=== PATIENT | male | born 1935 | race African-American/Black ===

== ENCOUNTER 2016-12-08 08:06 | Inpatient (IN) | payer OTHER ==
--- NOTE | 2016-12-08 08:54 | Diag Imaging Result Document ---
PROCEDURE NAME: CHEST-1 VIEW - 12/08/2016 CHEST, SINGLE VIEW: INDICATION: Hip fracture. FINDINGS: There is cardiomegaly. The pulmonary vasculature is not congested. There is evidence of previous granulomatous infection. No infiltrates or effusions are identified. IMPRESSION: No acute abnormalities. Cardiomegaly.
[2016-12-08] MEDS ORDERED: ZOFRAN IV ONE (09:01)
[2016-12-08] MEDS ORDERED: MORPHINE IV ONE (09:01)
--- NOTE | 2016-12-08 09:05 | Diag Imaging Result Document ---
PROCEDURE NAME: XRAY PELVIS W/HIP 2-3VW RT - 12/08/2016 X-RAY PELVIS WITH HIP 2-3 VIEWS, RIGHT: FINDINGS: There is a transverse fracture through the right femoral neck with varus angulation. There is no dislocation. There are surgical clips projecting over the inguinal regions and common iliac stents. IMPRESSION: Right femoral neck fracture.
[2016-12-08] MEDS ORDERED: MORPHINE ONE (09:08)
--- NOTE | 2016-12-08 09:10 | PROVIDER DOCUMENTATION ---
HPI-General Adult - General Chief Complaint: Hip Injury Stated Complaint: hip injury Time Seen by Provider: 12/08/16 09:00 Allergies/Adverse Reactions: Patient Allergies Allergy/AdvReac Type Severity Reaction Status Date / Time No Known Allergies Allergy Verified 12/08/16 08:16 Home Medications: Home Medication List Medication Instructions Recorded Confirmed Last Taken Type Clopidogrel [Plavix] 1 dose PO DAILY 12/08/16 12/08/16 Unknown History Diltiazem HCl [Diltiazem ER] 1 dose PO DIRECTED 12/08/16 12/08/16 12/08/16 09 :09 History Lisinopril/Hydrochlorothiazide 1 dose PO DIRECTED 12/08/16 12/08/16 12/08/16 09:10 History [Lisinopril-Hctz 20-12.5 mg Tab] Metformin E.r. [Glucophage Xr] 1 dose BID 12/08/16 12/08/16 12/08/16 09:08 History Omeprazole 1 dose PO DIRECTED 12/08/16 12/08/16 12/08/16 09:10 History Potassium Chloride E.r. [Micro-K] 1 dose PO DIRECTED 12/08/16 12/08/16 09:10 History SIMVAstatin [Zocor] 1 dose PO DIRECTED 12/08/16 12/08/16 Unknown History Tamsulosin [Flomax] 1 dose PO DAILY 12/08/16 12/08/16 12/08/16 09:08 History - History of Present Illness -Gen Adult Nature of Presenting Problems: 81 YOBLKM PRESENTS TO ED WITH C/O RT HIP PAIN. PT STATES HE FELL IN FLOOR YESTERDAY EVENING AROUND 1400, PT STATES HE WAS IN THE FLOOR ALL NIGHT, AND WAS FOUND BY FAMILY AND EMS WAS CALLED. RT LEG APPEARS TO BE SHORTER THAN THE LEFT, AND ROTATED OUTWARD. Location of Pain/Injury: reports: lower extremity (RT HIP) Pain Radiation: reports: no radiation Quality of Pain: reports: aching Severity: reports: moderate Onset/Duration: reports: 24 hours ago Timing: reports: still present Context/Activities at Onset: reports: light activity Modifying Factors: improves with: nothing Similar Symptoms Previously?: No Recently seen or treated by another doctor?: No Review of Systems - Adult - REVIEW OF SYSTEMS - ADULT Constitutional: denies: chills, fever Eyes: reports: no symptoms reported Ears, Nose, Mouth & Throat: reports: no symptoms reported Cardiovascular: denies: chest pain, palpitations, syncope Respiratory: denies: cough, shortness of breath, wheezing Gastrointestinal: denies: abdominal pain, diarrhea, nausea, vomiting Genitourinary: reports: no symptoms reported Musculoskeletal: reports: joint pain (RT HIP). denies: back pain, neck pain Integumentary: reports: no symptoms reported Neurological: denies: dizziness/vertigo, headache/migraines, syncope Psychiatric: reports: no symptoms reported Endocrine: reports: no symptoms reported Hematologic/Lymphatic: reports: no symptoms reported Allergic/Immunologic: reports: no symptoms reported All Other Systems: Reviewed and Negative Past History - Adult - PAST MEDICAL HISTORY-ADULT Review of Records: reports: Nursing Assessment Review, Medications Reviewed Cardiovascular: reports: HTN Neurological: reports: CVA - IMMUNIZATION STATUS Childhood Immunizations: See Nurse Assessment Flu Vaccine: See Nurse Assessment - SOCIAL HISTORY Smoking: quit greater than 1 year, cigarettes Substance Use: denies Alcohol Use Frequency: never Living Situation: alone Physical Exam-General - CONSTITUTIONAL General Appearance: alert, moderate distress - EYES Eyes: PERRL/EOMI, pink conjunctivae - HEAD, EARS, NOSE, MOUTH & THROAT HENMT: normocephalic/atraumatic, moist mucous membranes - NECK Neck: non-tender, full range of motion, supple - RESPIRATORY Respiratory: chest non-tender, lungs clear, normal breath sounds - CARDIOVASCULAR Cardiovascular: normal peripheral pulses, regular rate, rhythm - GASTROINTESTINAL (ABDOMEN) Abdominal Exam: normal bowel sounds, non tender, soft - LYMPHATIC Lymphatic: no adenopathy - MUSCULOSKELETAL Back Exam: normal inspection, no CVA tenderness, no vertebral tenderness Extremity: tenderness (RT HIP), other - SKIN Integumentary: normal color, normal turgor, warm/dry - NEUROLOGIC Neurologic: grossly normal - PSYCHIATRIC Psych/Mental Status: oriented x 3 Progress - EKG 1 Time of EKG reading by physician:: 09:10 EKG Read and Signed by:: Jamie Toth EKG Interpretation (*Must complete 3 of following elements*): Abnormal Rate: 75 Rhythm: SINUS RHYTHM W/ SINUS ARRHYTHMIA [place]: normal QRS: normal ME Interval: normal Comments: ST & T WAVE ABNORMALITY. - XRAY 1 XRAY: Right XRAY Study: Hip XRAY Interpretation: FEMUR NECK FX - CONSULTS/PCP/HOSPITALIST Notification #1 *Consult/PCP/Hospitalist*: DR JANG Time Discussed: 09:18 Reason/Comments: DR TOTH SPOKE WITH DR JANG. DR JANG WILL SEE PT AT MAIN. Consult Disposition: Admit #2 Consult: DR BOLIVAR Time Discussed: 09:22 Reason/Comments: DR TOTH SPOKE WITH DR BOLIVAR. DR BOLIVAR WILL HOLD PT FOR A ROOM. Consult Disposition: Admit Departure - Departure Time of Disposition Order: 09:13 DIAGNOSIS: Femur neck fracture Qualifiers: Encounter type: initial encounter Fracture type: closed Laterality: right Qualified Code(s): S72.001A - Fracture of unspecified part of neck of right femur, initial encounter for closed fracture Disposition: ADMITTED INPATIENT 09 Certified Medical Emergency: Emergent Condition: Stable Attestation - Scribe Verification/Attestation Scribe:: Fazal Howard Acting as Scribe for:: Jamie Toth Scribe documention review:: This chart was documented by a scribe and accurately reflects the service the provider performed and the decisions made by the provider.
[2016-12-08 09:12] LABS: BASO% 0.1 % (0.0-0.8); EOS# 0.01 X1000 (0.0-0.7); EOS% 0.1 % (0.0-10.0); HEMATOCRIT 37.1 % (42.0-52.0); HEMOGLOBIN 12.5 g/dL (14.0-18.0); IMM GRAN# 0.02 X1000 (0.0-0.04); IMM GRAN% 0.2 % (0.0-0.5); LYMPH# 0.72 X1000 (1.2-3.4); LYMPH% 5.8 % (20.5-51.1); MANUAL DIFF NEEDED? YES; MCH 29.1 PG (27-31); MCHC 33.7 g/dL (33-37); MCV 86.5 FL (81-99); MONO# 0.88 X1000 (0.11-0.59); MONO% 7.1 % (1.7-9.3); MPV 10.2 FL (7.4-10.4); NEUT% 86.7 % (42.2-75.2); PLT 181 X1000 (130-400); RBC 4.29 XMIL (4.7-6.1)
[2016-12-08 09:21] LABS: INR 1.16 (0.86-1.15); PROTIME 15.1 Seconds (12.1-15.5); PTT PL 30.7 Seconds (22.6-43.9)
--- NOTE | 2016-12-08 09:24 | EKG Report ---
Test Performed on : 12/08/2016 09:09:36 AM Test Reason : hip fx Blood Pressure : / mmHG Vent. Rate : 075 BPM Atrial Rate : 075 BPM P-R Int : 136 ms QRS Dur : 090 ms QT Int : 406 ms P-R-T Axes : 070 071 -38 degrees QTc Int : 453 ms Sinus rhythm. with marked sinus arrhythmia. ST & T wave abnormality, consider inferolateral ischemia Abnormal ECG When compared with ECG of 26-NOV-2007 18:54, Left posterior fascicular block is no longer present ST now depressed in Inferior leads Non-specific change in ST segment in Anterior leads T wave inversion now evident in Inferior leads T wave inversion now evident in Anterior leads T wave inversion less evident in Lateral leads Unconfirmed Result
[2016-12-08 09:27] LABS: ALBUMIN 3.8 g/dL (3.5-5.0); CALCIUM 9.3 mg/dL (8.8-10.2); POTASSIUM 3.4 mmol/L (3.5-5.1); TOTAL BILIRUBIN 1.1 mg/dL (0.20-1.00); TOTAL PROTEIN 7.1 g/dL (6.3-8.3)
[2016-12-08 09:36] LABS: BANDS 1 % (0-1); LYMPHS 7 % (21-51); MONO 8 % (1-9)
[2016-12-08] MEDS ORDERED: APRESOLINE IV PRN ×2 (11:43→13:39)
[2016-12-08] MEDS ORDERED: NS 500 ML IV ONE ×2 (11:47→13:50)
[2016-12-08] MEDS ORDERED: ZOFRAN IV PRN (11:50)
[2016-12-08] MEDS ORDERED: TYLENOL PO PRN (11:50)
[2016-12-08 12:10] LABS: HEMOGLOBIN A1C 6.3 % (4.8-6.0)
[2016-12-08] MEDS ORDERED: DILTIAZEM HCL PO SCH (12:45)
[2016-12-08] MEDS: HUMALOG SUBQ SCH ×2 (16:00→20:58)
--- NOTE | 2016-12-08 16:07 | CONSULTATION ---
DATE OF CONSULTATION: 12/08/2016 REASON FOR CONSULT: Right hip fracture. HISTORY OF PRESENT ILLNESS: Mr. Wood is a 81-year-old gentleman who fell yesterday while at home in the kitchen. After his fall he is complaining of right hip pain. The family did not find him until the following day. On arrival to the emergency department, x-rays were obtained of Mr. Wood's hips revealing a hip fracture, as well as some abnormal creatine kinase, possibility of some rhabdomyolysis occurring. We were consulted to evaluate the patient's right hip. PAST MEDICAL HISTORY: 1. The patient is blind in his left eye. 2. Diabetes mellitus. 3. Kidney stents. 4. Aortic aneurysm. 5. Acid reflux. 6. Hyperlipidemia. 7. Stroke. 8. Hypertension. 9. Benign prostatic hypertrophy. PAST SURGICAL HISTORY: 1. Abscess on his midback. 2. Stent placement related to renal stenosis. 3. Aortic aneurysm repair. ALLERGIES: No known allergies. HOME MEDICATIONS: 1. Flomax 0.4 mg p.o. daily. 2. Potassium 10 mEq one p.o. as directed. 3. Omeprazole 20 mg one dose p.o. as directed. 4. Lisinopril/hydrochlorothiazide 20/12.5 mg tablet one p.o. as directed. 5. Diltiazem ER 300 mg one p.o. as directed. 6. Plavix 75 mg one p.o. daily. 7. Glucophage 500 mg one dose b.i.d. 8. Zocor 40 mg one p.o. as directed. FAMILY HISTORY: Noncontributory. SOCIAL HISTORY: Mr. Wood lives at home. Reports smoking cigarettes. Denies using alcohol. REVIEW OF SYSTEMS: Ten point review of systems were performed and the patient answered negative in, except for what was listed in the history of present illness. PHYSICAL EXAMINATION: General: The patient is lying in bed. He is awake. Slow to answer questions, but appropriate. Family surrounding the room. Musculoskeletal Examination: Reveals pain with palpation about the right hip. Mr. Wood has pain with log rolling the right leg. He has 2+ pulse in the right foot distal to the injury, as well as brisk capillary refill. Neurological Examination: He is neurologically intact. There is no neurological deficit there. ASSESSMENT: Right femoral neck fracture. PLAN: Right bipolar hemiarthroplasty. The risks, benefits, and alternatives of the surgery were discussed with the patient, including the risk of anesthesia, , bleeding, damage to blood vessels, nerves, tendons, ligaments, infection and other imponderables, and the patient agrees to proceed with the surgery at this time. Dictated by SEBASTIAN Luis for Luke Bai MD
--- NOTE | 2016-12-08 16:21 | HISTORY AND PHYSICAL ---
CHIEF COMPLAINT: Fall and right leg pain. HISTORY OF PRESENT ILLNESS: This is a very pleasant, 81-year-old gentleman with a prior history of hypertension, BPH, diabetes mellitus and prior CVA. He presents to the emergency room for evaluation of right hip pain. He states that he fell at around 2 o'clock the afternoon before coming to the emergency room. He was unable to get up off the floor secondary to pain. He was found by his family around 7 o'clock this morning, about 19 or 20 hours after the fall. He denied any dizziness, chest pain, syncope. He states he just lost his footing and fell. He was noted to have a shortened and rotated right lower extremity. Hip and pelvis x-ray revealed a right femoral neck fracture which is transverse with varus angulation. There is no dislocation. He does have surgical clips over the inguinal region and common iliac stents. He is being admitted for further evaluation and treatment. PAST MEDICAL HISTORY: Hypertension, peripheral vascular disease with iliac stents noted, BPH on Flomax, diabetes mellitus, prior CVA, hyperlipidemia. PAST SURGICAL HISTORY: He denies. ALLERGIES: No known drug allergies. SOCIAL HISTORY: Denies alcohol, tobacco, or illicit drug use. He does live alone, but he has family close that are active in his care. DISCHARGE MEDICATIONS: 1. Flomax 0.4 daily. 2. Zocor daily. 3. Plavix daily. 4. Diltiazem ER daily. 5. Lisinopril hydrochlorothiazide 20/12.5 daily. These will need to be further verified with the last doses being on the , we think. REVIEW OF SYSTEMS: A 14 point review of systems is discussed with patient with pertinent positives being right lower extremity pain, recent fall. He denied chest pain, palpitations, syncope, dizziness, nausea, vomiting, diarrhea, constipation, black or bloody vomitus, black or bloody stools and hematuria, dysuria, frequency, urgency, any shortness of breath, PND, orthopnea, fever, chills. PHYSICAL EXAMINATION: GENERAL: This is a 81-year-old gentleman, who is sitting up in the bed, in no distress. VITAL SIGNS: Blood pressure is 181/97 with a heart rate of 82, respirations are 18, temperature is 98.9 degrees oral with room air saturations of 97%. HEENT: Head is normocephalic, atraumatic. Pupils equal, round, react to light. EOMs are intact. Sclerae are anicteric. Mucous membranes are dry. NECK: Supple with trachea midline. CARDIOVASCULAR: Regular rate and rhythm. S1 and S2 are appreciated. PULMONARY: Breath sounds are clear. No increased work of breathing noted. GASTROINTESTINAL: Abdomen is soft, nontender, nondistended with bowel sounds in all 4 quadrants. EXTREMITIES: No clubbing, cyanosis, or edema. Right lower extremity is rotated and shortened. Calves are nontender. Pulses are palpable. SKIN: Warm and dry with no rashes or lesions noted. NEUROLOGIC: He is alert and oriented x3. DIAGNOSTICS: WBC is 12.4, with a hemoglobin of 12.5, hematocrit 37.1, and platelets of 181,000. INR is 1.16. Sodium is 137, potassium 3.4, BUN 21, creatinine 1.2 with a glucose of 160. HbA1c is 6.3 with a total bilirubin of 1.1, AST of 47, ALT of 16 and a total CPK of 3120. Hip and pelvis x-ray of the right reveal a right femoral neck fracture that is not dislocated, and his chest x-ray reveals no acute abnormalities. ASSESSMENT AND PLAN: 1. Right femoral neck fracture status post fall. 2. Rhabdomyolysis with decreasing CPK. 3. Hypertension. 4. Benign prostatic hypertrophy. 5. Diabetes mellitus with an A1c of. 6.3. 6. Elevated leukocytosis. This could be reactive, although he does have a history of BPH. He states symptoms are controlled on Flomax. When Vaughn catheter is placed, we will obtain a urinalysis and a urine culture. He denied any symptoms of any illnesses. We will continue to trend labs. CPK was 3120. We have started IV hydration. A repeat was 2972. We will continue with the hydration. Vaughn has been placed now. We will continue with q.6 hours CPKs with the next one being at 6 o'clock tonight. Creatinine is 1.2. 7. Dr. Bai in orthopedics has been consulted. He will see the patient at [facility]. Prior to that we will have the patient placed in Tate traction at 5 pounds. Type and screen has been obtained. Dictated by SEBASTIAN Oliveira for Saturnino Brantley MD LUX
[2016-12-08 16:44] LABS: URINE SOURCE CATH
[2016-12-08 16:52] LABS: BILIRUBIN URINE NEGATIVE (NEGATIVE); BLOOD URINE LARGE (NEGATIVE); CLARITY CLEAR (CLEAR); COLOR YELLOW; GLUCOSE URINE 100 mg/dL (NEGATIVE); LEUKOCYTES URINE NEGATIVE (NEGATIVE); NITRITE URINE NEGATIVE (NEGATIVE); PROTEIN URINE 100 mg/dL (NEGATIVE); SP GRAVITY URINE >= 1.030; UROBILINOGEN URINE 0.2 EU/dL (0.2-1.0)
[2016-12-08 17:03] LABS: URINE EPITHELIAL CELLS <10 /HPF (<10); URINE WBC <10 /HPF (<10)
[2016-12-08] MEDS: MORPHINE IV PRN ×2 (17:06→20:49)
[2016-12-08] MEDS: CARDIZEM CD PO SCH (17:07)
[2016-12-08] MEDS: PROTONIX IV SCH (17:18)
[2016-12-08] MEDS: NS 1,000 ML IV SCH ×2 (17:24→20:49)
[2016-12-08 18:38] LABS: CALCIUM 8.7 mg/dL (8.8-10.2); POTASSIUM 3.7 mmol/L (3.5-5.1)
[2016-12-09] MEDS: MORPHINE IV PRN ×4 (03:10→19:21)
[2016-12-09] MEDS: NS 1,000 ML IV SCH ×2 (03:13→14:01)
[2016-12-09] MEDS: HUMALOG SUBQ SCH ×4 (07:00→21:06)
[2016-12-09 07:07] LABS: HEMATOCRIT 35.3 % (42.0-52.0); HEMOGLOBIN 12.1 g/dL (14.0-18.0); MCHC 34.3 g/dL (33-37); MCV 87.4 FL (81-99); MPV 11.1 FL (7.4-10.4); RBC 4.04 XMIL (4.7-6.1)
[2016-12-09 07:50] LABS: CALCIUM 8.4 mg/dL (8.8-10.2); POTASSIUM 3.6 mmol/L (3.5-5.1); TOTAL BILIRUBIN 0.69 mg/dL (0.20-1.00); TOTAL PROTEIN 6.5 g/dL (6.3-8.3)
[2016-12-09] MEDS: CARDIZEM CD PO SCH (09:40)
--- NOTE | 2016-12-09 11:23 | PROGRESS NOTE ---
DATE: 12/09/2016 SUBJECTIVE: The patient is a pleasant 81-year-old male who is 2 days status post a fall sustaining a right femoral neck fracture. He was approximately 1 day before he presented to the emergency room and x-rays revealed a right displaced femoral neck fracture. He was subsequently transferred to [facility] and orthopedic evaluation was requested. The patient was also noted to have rhabdomyolysis and is improving with IV fluids. OBJECTIVE: Patient is currently resting comfortably. Tate's traction is in place. His calf is soft. He is grossly neurovascularly intact. LABORATORY DATA: His hemoglobin is 12.1, hematocrit is 35.3. His creatine kinase is 2375, which is improving. IMPRESSION: Right displaced femoral neck fracture. PLAN: At this point, we will anticipate proceeding with right bipolar hemiarthroplasty tomorrow if the patient is medically cleared. Patient would like one more day for improvement of his rhabdomyolysis, would also like to wait secondary to his taking Plavix. All questions were answered.
--- NOTE | 2016-12-09 12:24 | PROGRESS NOTE ---
DATE: 12/09/2016 SUBJECTIVE: This patient is resting comfortably on the bed. He is complaining of right hip pain. He denies nausea, vomiting, diarrhea, constipation. No chest pain. No shortness of breath. OBJECTIVE: Vital Signs: Temperature 97.6 degrees, pulse 66, respiratory rate 16, blood pressure 134/66, O2 saturation 94% on room air. HEENT: Head normocephalic. No trauma. PERRLA. Neck: Supple. No JVD. No masses. Central trachea. Cardiovascular: RRR. No murmurs. Chest: Clear to auscultation. No wheezing. No rales. Abdomen: Soft, nontender, nondistended. No hepatosplenomegaly. Extremities: No clubbing, no cyanosis. No edema. Right lower extremity is on skeletal traction. It is a little bit short compared with the left lower extremity likely secondary to a femur fracture. Pulses are palpable. Neurological: The patient is alert and oriented x3. No focal neurological deficits. LABORATORY: WBC 10, hemoglobin 12.1, hematocrit 35.3, platelets 169,000. Sodium 139, potassium 3.6, chloride 103, bicarbonate 21, BUN 26, creatinine 1.4. Glucose 124. Hemoglobin A1c 6.3. Calcium 8.4. CK 1993. Albumin 3. ASSESSMENT AND PLAN: 1. Right femoral neck fracture. Orthopedic Surgery Department evaluated this patient and they will perform a right bipolar hemiarthroplasty. We will continue to monitor. We will continue with pain medication. 2. Rhabdomyolysis with decreasing CPK, this is getting better. The creatinine is a little bit elevated. It is 1.4. We do not have a baseline creatinine, no records. We will continue to monitor and with IV hydration. 3. Hypertension. This is stable. Continue with the same management. 4. BPH. Continue with the same management. 5. Type 2 diabetes with a hemoglobin A1c of 6.3. It looks it is controlled. We will continue with the same management. This patient is on a sliding scale insulin and pattern of blood sugar. We also will also continue with IV fluids. 6. The leukocytosis is getting better. Decreased from 12.4 to 10.2. No signs of infection at this moment. 7. DVT prophylaxis. He is not on any anticoagulation for now because he is going for surgery. 8. GI prophylaxis. I will continue with pantoprazole 40 IV daily.
[2016-12-09] MEDS: PROTONIX IV SCH (12:30)
[2016-12-09] MEDS: SODIUM CHLORIDE 0.9% INJ SCH (14:01)
[2016-12-10] MEDS: NS 1,000 ML IV SCH (04:56)
[2016-12-10] MEDS: MORPHINE IV PRN ×4 (04:56→23:57)
[2016-12-10 06:21] LABS: MANUAL DIFF NEEDED? NO
[2016-12-10 06:22] LABS: BASO% 0.2 % (0.0-0.8); HEMATOCRIT 36.1 % (42.0-52.0); HEMOGLOBIN 12.3 g/dL (14.0-18.0); IMM GRAN# 0.03 X1000 (0.0-0.04); IMM GRAN% 0.3 % (0.0-0.5); LYMPH# 0.75 X1000 (1.2-3.4); LYMPH% 7.5 % (20.5-51.1); MCH 29.8 PG (27-31); MCHC 34.1 g/dL (33-37); MCV 87.4 FL (81-99); MONO# 0.82 X1000 (0.11-0.59); MONO% 8.2 % (1.7-9.3); MPV 11.1 FL (7.4-10.4); NEUT% 82.8 % (42.2-75.2); PLT 154 X1000 (130-400); RBC 4.13 XMIL (4.7-6.1)
[2016-12-10 06:32] LABS: AGAP 15; BUN 26 mg/dL (8-22); CALCIUM 8.5 mg/dL (8.8-10.2); CHLORIDE 103 mmol/L (98-107); COSMO 284; POTASSIUM 3.5 mmol/L (3.5-5.1); SODIUM 138 mmol/L (136-145); TCO2 20 mmol/L (25-35)
[2016-12-10] MEDS: HUMALOG SUBQ SCH ×4 (07:26→20:46)
[2016-12-10] MEDS: CARDIZEM CD PO SCH (08:55)
[2016-12-10] MEDS ORDERED: KEFZOL 2 GM/D5W 50 ML ONE (11:58)
[2016-12-10] MEDS ORDERED: NEOSPORIN G.U. IRRIGANT ONE (12:22)
[2016-12-10] MEDS ORDERED: ALBUMIN 25% ONE (13:28)
[2016-12-10] MEDS ORDERED: DIPRIVAN 1% ONE (13:41)
[2016-12-10] MEDS ORDERED: LR 2,000 ML ONE (14:46)
[2016-12-10] MEDS ORDERED: EPHEDRINE ONE (14:46)
[2016-12-10] MEDS ORDERED: OFIRMEV 1000 MG/ISOTONIC SOLN 100 ML ONE (14:46)
[2016-12-10] MEDS ORDERED: ANESTHESIA PB SET 88 IN 5742 ONE (14:46)
[2016-12-10] MEDS ORDERED: XYLOCAINE-MPF 2% ONE (14:46)
[2016-12-10] MEDS ORDERED: NS 1,000 ML ONE (14:57)
[2016-12-10] MEDS ORDERED: ZOFRAN IV PRN (15:15)
[2016-12-10] MEDS ORDERED: MILK OF MAGNESIA PO PRN (15:15)
[2016-12-10] MEDS ORDERED: HALDOL IV PRN (15:15)
--- NOTE | 2016-12-10 15:43 | PROGRESS NOTE ---
DATE: 12/10/2016 SUBJECTIVE: This patient is resting comfortably on the bed. He is getting surgery today. He is not complaining of pain. No shortness of breath. No chest pain as well. OBJECTIVE: Vital Signs: Temperature 98 degrees, pulse 78, respiratory rate 20, blood pressure 177/76, O2 saturation 96% on nasal cannula. HEENT: Head normocephalic. No trauma. PERRLA. Neck: Supple. No JVD. No masses. Central trachea. Chest: Clear to auscultation. No wheezing. No rales. Cardiovascular: RRR. Abdomen: Soft, nontender, nondistended. Obese. Extremities: No clubbing, no cyanosis. No edema. Right lower extremities painful at the level of the hip, left lower extremity without any problem. Pulses are palpable. Neurological: The patient is sleepy but arousable likely secondary to pain medication. LABORATORY: WBC 9.9, hemoglobin 12.3, hematocrit 36.1, platelet 154,000. Sodium 138, potassium 3.5, chloride 103, bicarbonate 20, BUN 26, creatinine 1.3, glucose 166, calcium 8.5. ASSESSMENT AND PLAN: 1. Right femoral neck fracture, Orthopedic Surgery Department evaluated this patient and they are performing a right bipolar hemiarthroplasty. We will continue to monitor. We will continue with pain medication. 2. Rhabdomyolysis. This is getting better. We will continue to monitor the creatinine. Compared with yesterday decreased a little bit from 1.4 to 1.3. We will continue to monitor and IV hydration. 3. Hypertension. The blood pressure is a little bit elevated likely secondary to pain. We will continue this monitoring after surgery. 4. Benign prostatic hypertrophy. Continue with the same management. 5. Type 2 diabetes with hemoglobin A1c of 6.3. It looks like it is controlled. I will continue with the same management. This patient is on a sliding scale insulin and pattern of blood sugar. Also we will continue with IV fluids. 6. Leukocytosis. Today the leukocytes are 9.9, no source of infection. No fever. No chills. This condition has resolved. 7. DVT prophylaxis. He is not on anticoagulation at this moment because he is getting surgery. 8. GI prophylaxis. Continue with pantoprazole IV daily.
[2016-12-10] MEDS: OXY IR PO PRN ×2 (16:00→23:49)
[2016-12-10] MEDS: PROTONIX IV SCH (16:30)
[2016-12-10] MEDS: TYLENOL PO SCH ×2 (16:54→23:49)
--- NOTE | 2016-12-10 17:20 | OPERATIVE NOTE ---
PROCEDURE DATE: 12/08/2016 PREOPERATIVE DIAGNOSIS: Right displaced femoral neck fracture. POSTOPERATIVE DIAGNOSIS: Right displaced femoral neck fracture. PROCEDURE: Hemiarthroplasty right hip with a DePuy Corail size 13 press-fit stem. SURGEON: Luke Bai MD EXECUTIVE ASSISTANT: Axel Orellana. SECOND SENIOR ELECTRONICS DESIGN ENGINEER: Bryan Mills. ANESTHESIA: General. IV FLUIDS: 1000 mL lactated Ringer's. ESTIMATED BLOOD LOSS: 50 mL. COMPLICATIONS: None. INDICATION: The patient is a 81-year-old male who is 3 days status post fall sustaining a right displaced femoral neck fracture. He presented the [facility] emergency room on Tuesday and x-rays revealed displaced femoral neck fracture. He was admitted in the hospital and placed 5 pounds of Tate's traction. Patient did have an underlying rhabdomyolysis and also was on chronic Plavix. After obtaining preoperative medical clearance recommendation to proceed right bipolar hemiarthroplasty on the right hip was offered. Risks, benefits surgery explained including anesthesia, , bleeding, infection, failure relieve pain, postop stiffness, never injury, blood clots and other imponderables. All questions answered. Patient, family wished to proceed with surgery. DETAILS OF OPERATION: The patient was taken to the operating room and placed supine on the operating table. Once adequate anesthesia was obtained the patient was placed left lateral decubitus position on a cyr bag with axillary roll. The right hip subsequently prepped, draped in sterile fashion. Standard lateral incision made along the hip and a posterior approach of the hip was performed. The luteus levon was incised longitudinally in line with the surgical incision. A Charnley retractor was then placed. The piriformis tendon was then identified and stay sutures placed. Piriformis tendon along with short external rotators was then elevated off its insertion site. A T-shaped capsulotomy was then performed. Number 1 Vicryl used, placed at the 2 edges of the cut surface of the posterior capsule. Corkscrew was then placed into the femoral head. The head was then removed after debridement of the acetabula was then conducted. A box cutting guide was then placed on the proximal humerus followed by a starting reamer. Sequential broaching was then performed up to size 13 stem. This was countersunk and a calcar plane was then conducted. Trial components then place and a 28 +1.5 femoral head with a 28 x 53 bipolar head had excellent stability and range of motion. The trial components were removed. Copious irrigation performed with antibiotic pulsatile lavage. A size 13 Corail stem was then impacted in position and had good fit. The 28 + 1.5 femoral head with a 28 x 53 bipolar head was then impacted on the stem. The hip was reduced, carried through range of motion, had good range of motion, good stability. The wound was copiously irrigated with antibiotic pulsatile lavage. Number 1 Vicryl was used to repair the posterior capsule followed by #1 Vicryl repair the piriformis tendon. Wound was copiously irrigated once again. The Charnley retractor was removed. Number 1 Vicryl was then used to repair the gluteus levon and fascia masha in running fashion. Wound was copiously once again this followed by 2-0 Vicryl and skin rani. Adaptic, sterile 4 x 4's, ABD pad and tape applied right hip followed by and patient tolerated procedure well, no complications, transferred to recovery room in stable condition.
--- NOTE | 2016-12-10 19:06 | Diag Imaging Result Document ---
PROCEDURE NAME: HIP 1 VIEW RIGHT - 12/10/2016 AP RIGHT HIP 1 VIEW: FINDINGS: There are postsurgical changes of recent right total hip prosthesis placement. Alignment appears satisfactory. There are no complicating features identified. IMPRESSION: Satisfactory postoperative image.
[2016-12-10] MEDS: COLACE PO SCH (20:44)
[2016-12-10] MEDS: KEFZOL 2 GM/D5W 50 ML IV SCH (20:44)
[2016-12-10] MEDS: PERIDEX MT SCH (20:44)
[2016-12-11] MEDS: KEFZOL 2 GM/D5W 50 ML IV SCH (05:45)
[2016-12-11] MEDS: HUMALOG SUBQ SCH ×4 (06:05→21:13)
[2016-12-11 06:18] LABS: MANUAL DIFF NEEDED? NO
[2016-12-11 06:41] LABS: BASO% 0.1 % (0.0-0.8); EOS# 0.06 X1000 (0.0-0.7); EOS% 0.7 % (0.0-10.0); HEMATOCRIT 27.6 % (42.0-52.0); HEMOGLOBIN 9.2 g/dL (14.0-18.0); IMM GRAN# 0.03 X1000 (0.0-0.04); IMM GRAN% 0.3 % (0.0-0.5); LYMPH# 1.24 X1000 (1.2-3.4); LYMPH% 13.7 % (20.5-51.1); MCH 29.7 PG (27-31); MCHC 33.3 g/dL (33-37); MONO# 1.06 X1000 (0.11-0.59); MONO% 11.8 % (1.7-9.3); MPV 11.7 FL (7.4-10.4); NEUT% 73.4 % (42.2-75.2); PLT 145 X1000 (130-400)
[2016-12-11] MEDS: MORPHINE IV PRN (07:50)
--- NOTE | 2016-12-11 09:50 | PROGRESS NOTE ---
DATE: 12/11/2016 SUBJECTIVE: Mr. Wood is postop day 1 from his right hip hemiarthroplasty yesterday performed by Dr. Bai. A little bit of a rough night overall. Pain is getting better though. OBJECTIVE: Extremities: Right lower extremity exam: Dressing is clean, dry, and intact. He has good dorsiflexion and plantar flexion of the foot. He has good sensation to light touch to the foot, and he has his hip abduction pillow in place. ASSESSMENT: Status post right hip hemiarthroplasty. PLAN: I am okay with Mr. Wood getting out of bed for all meals. Physical therapy will start working with him today to get him up and moving. Will keep him on his anticoagulation.
[2016-12-11] MEDS: CARDIZEM CD PO SCH (10:32)
[2016-12-11] MEDS: OXY IR PO PRN (10:32)
[2016-12-11] MEDS: FERROUS SULFATE PO SCH (10:32)
[2016-12-11] MEDS: NS 1,000 ML IV SCH ×2 (11:30→23:00)
[2016-12-11] MEDS: TYLENOL PO SCH ×2 (12:01→16:03)
[2016-12-11] MEDS: HEPARIN SUBQ SCH ×2 (12:02→21:12)
[2016-12-11] MEDS: PERIDEX MT SCH ×2 (12:03→21:12)
--- NOTE | 2016-12-11 12:06 | PROGRESS NOTE ---
DATE: 12/11/2016 SUBJECTIVE: This patient is resting comfortably on the bed. He is a little bit somnolent, probably secondary to the morphine. He is complaining of mild pain at the level of the right hip at this moment. No shortness of breath. No chest pain. No belly pain. Family members at the bedside. OBJECTIVE: Vital Signs: Temperature 98.9, pulse 70, respiratory rate 14, blood pressure 113/56, oxygen saturation 96 on nasal cannula 2 L. HEENT: Head normocephalic. No trauma. PERRLA. Neck: Supple. No JVD. No masses. Central trachea. Chest: Clear to auscultation. No wheezing. No rales. Cardiovascular: RRR. No murmurs. Abdomen: Soft, nontender, nondistended. Obese. Extremities: No clubbing, no cyanosis. No edema. Right lower extremity painful at the level of the right hip. Surgical wound without any sign of bleed or infection. The dressing is clean. Pulses are palpable bilaterally. Neurological: The patient is sleepy, but arousable and this patient is oriented. He is following commands. LABORATORY: WBC 9, hemoglobin 9.2, hematocrit 27.6, platelets 147. Sodium 141, potassium 4, chloride 106, bicarbonate 22, BUN 33, creatinine 2, glucose 179. Calcium 8. ASSESSMENT AND PLAN: 1. Right femoral neck fracture. Orthopedic surgery department is on board, he is status post right bipolar hemiarthroplasty. We will continue to monitor. He is on p.o. and IV pain medication. Also physical therapy has been consulted. I will put this patient today on anticoagulation. 2. Acute kidney injury. When this patient came to the emergency department, the CK was elevated and the creatinine was around 1.2-1.4. Today is 2. I will place this patient on IV fluids at a rate of 100 and I will reassess the kidney function again. 3. Hypertension. The blood pressure is controlled. Today is 113/56, we will continue to monitor. 4. Anemia. Previous to the surgery, the hemoglobin was 12.3, today it is 9.2, likely secondary to acute blood loss. Will continue to monitor this. His vital signs are stable, we will transfuse if needed. 5. Type 2 diabetes with hemoglobin A1c of 6.3, This looks like this is controlled. Will continue with the same management. He is on sliding scale insulin and pattern of blood sugar. Also will continue with IV fluids. 6. Leukocytosis resolved. 7. Deep vein thrombosis prophylaxis. I put this patient today on anticoagulation. Because of his kidney injury, I will put this patient on heparin subcutaneously. 8. Gastrointestinal prophylaxis. Continue with pantoprazole. This patient has been placed on clear liquid diet as well.
[2016-12-11] MEDS: PROTONIX IV SCH (12:11)
--- NOTE | 2016-12-11 13:26 | Diag Imaging Result Document ---
PROCEDURE NAME: US ABDOMEN-COMPLETE - 12/11/2016 ABDOMINAL ULTRASOUND: FINDINGS: The aorta and inferior vena cava are within normal limits. The gallbladder is distended, but not tender. No apparent stones are present. There is no evidence of biliary dilatation. The common bile duct measures 3 mm. The aorta and inferior vena cava are partially obscured as is the pancreas. The kidneys are without evidence of hydronephrosis or mass. There is antegrade flow in the portal vein. The liver is otherwise unremarkable as seen. The spleen is obscured. IMPRESSION: 1. Suboptimal study due to bowel gas and body habitus. 2. Distended, but otherwise normal-appearing gallbladder.
[2016-12-11] MEDS: COLACE PO SCH (21:12)
[2016-12-12] MEDS: TYLENOL PO SCH ×3 (00:14→16:49)
[2016-12-12 06:03] LABS: MANUAL DIFF NEEDED? NO
[2016-12-12 06:25] LABS: BASO% 0.2 % (0.0-0.8); EOS# 0.13 X1000 (0.0-0.7); EOS% 1.4 % (0.0-10.0); HEMOGLOBIN 8.3 g/dL (14.0-18.0); IMM GRAN# 0.02 X1000 (0.0-0.04); IMM GRAN% 0.2 % (0.0-0.5); LYMPH# 1.44 X1000 (1.2-3.4); LYMPH% 15.3 % (20.5-51.1); MCH 29.3 PG (27-31); MCHC 33.2 g/dL (33-37); MCV 88.3 FL (81-99); MONO# 1.06 X1000 (0.11-0.59); MONO% 11.3 % (1.7-9.3); MPV 11.3 FL (7.4-10.4); NEUT% 71.6 % (42.2-75.2); PLT 128 X1000 (130-400); RBC 2.83 XMIL (4.7-6.1)
[2016-12-12 06:34] LABS: POTASSIUM 3.6 mmol/L (3.5-5.1)
[2016-12-12] MEDS: NS 1,000 ML IV SCH (06:47)
[2016-12-12] MEDS: FERROUS SULFATE PO SCH (09:45)
[2016-12-12] MEDS: PERIDEX MT SCH ×2 (09:45→21:31)
[2016-12-12] MEDS: CARDIZEM CD PO SCH (09:45)
[2016-12-12] MEDS: HEPARIN SUBQ SCH ×2 (09:45→21:30)
[2016-12-12] MEDS: HUMALOG SUBQ SCH ×4 (11:47→21:44)
[2016-12-12] MEDS: OXY IR PO PRN (11:58)
[2016-12-12] MEDS: SODIUM CHLORIDE 0.9% INJ SCH (11:59)
[2016-12-12] MEDS: PROTONIX IV SCH (11:59)
--- NOTE | 2016-12-12 12:48 | PROGRESS NOTE ---
DATE: 12/12/2016 SUBJECTIVE: This patient is resting comfortably on the bed. He states that he wants to go home. He is more attentive and answering all my questions. He is alert and oriented x2. He is not oriented in time. He is not complaining of any pain at this moment. No shortness of breath. No chest pain. His creatinine has been increasing for the last couple of days, even though he has been getting fluids. I will consult nephrology department to evaluate this patient. OBJECTIVE: Vital Signs: Temperature 97.5 degrees, pulse 80, respiratory rate 14, blood pressure 117/58, oxygen saturation 99 on room air. HEENT: Head normocephalic. No trauma. PERRLA. Neck: Supple. No JVD. No masses. Central trachea. Chest: Clear to auscultation. No wheezing. No rales. Cardiovascular: RRR. No murmurs. Abdomen: Soft, nontender, nondistended. Obese. Extremities: No clubbing, cyanosis, or edema. Right lower extremity painful at the level of the right hip to palpation. Surgical wound without any sign of bleed or infection. The dressing is clean. Pulses are palpable bilaterally. Neurological Examination: The patient is alert. He is oriented x2. He is not oriented in time. He is answering all my questions. He is following commands. Laboratory: WBC 9.3, hemoglobin 8.3, hematocrit 25, platelets 128,000. Sodium 138, potassium 3.6, chloride 104, bicarbonate 21, BUN 47, creatinine 2.7, glucose 147, calcium 8. ASSESSMENT AND PLAN: 1. Right femoral neck fracture. Orthopedic surgery department is on board. He is status post right bipolar hemiarthroplasty. We will continue to monitor. Physical therapy is on board as well. We will continue with pain medication and anticoagulation. 2. Acute kidney injury. The creatinine I think has been getting worse. Yesterday it was 2 and today is 2.7. I will place a consult for nephrology department to evaluate this patient. This patient has been on intravenous fluids since yesterday. 3. Hypertension. The blood pressure is controlled. Continue to monitor. 4. Anemia. Previous to surgery, the hemoglobin was 12.3 and then dropped to 9.2, today is 8.3. We will keep an eye on that. We will follow the hemoglobin and hematocrit. We will transfuse if needed. 5. Type 2 diabetes with a hemoglobin A1c of 6.3. This looks like it is controlled. We will continue with the same management. We will continue with the sliding scale insulin and pattern of blood sugar. 6. Leukocytosis, resolved. 7. Deep venous thrombosis prophylaxis. This patient is on heparin subcutaneously. 8. Gastrointestinal prophylaxis, pantoprazole. Continue with pantoprazole.
[2016-12-12] MEDS ORDERED: HALDOL IV ONE (13:56)
[2016-12-12] MEDS ORDERED: HALDOL IM ONE (15:45)
[2016-12-12 19:03] LABS: URINE MICRO REVIEW NEEDED? NO; URINE SOURCE CATH
[2016-12-12 19:08] LABS: BILIRUBIN URINE NEGATIVE (NEGATIVE); BLOOD URINE MODERATE (NEGATIVE); COLOR YELLOW; GLUCOSE URINE NEGATIVE (NEGATIVE); LEUKOCYTES URINE NEGATIVE (NEGATIVE); NITRITE URINE NEGATIVE (NEGATIVE); PH URINE 5.5; PROTEIN URINE 50 mg/dL (NEGATIVE); SP GRAVITY URINE 1.025; TURBIDITY URINE CLEAR (CLEAR); UROBILINOGEN URINE NORMAL (NORMAL)
[2016-12-12 19:09] LABS: UR EPITHELIAL CELLS <10 /HPF (<10); URINE BACTERIA NEGATIVE /HPF; URINE RBC <10 /HPF (<10); URINE WBC <10 /HPF (<10)
[2016-12-12 19:46] LABS: UR CREAT RANDOM 245.7 mg/dL (14-26); UR PROT RANDOM 71.6 mg/dL
[2016-12-12] MEDS: COLACE PO SCH (21:30)
[2016-12-13] MEDS: NS 1,000 ML IV SCH ×4 (01:27→16:50)
[2016-12-13] MEDS: OXY IR PO PRN (02:05)
[2016-12-13] MEDS: TYLENOL PO SCH ×3 (04:06→16:51)
[2016-12-13 05:56] LABS: MANUAL DIFF NEEDED? NO
[2016-12-13 06:11] LABS: BASO% 0.2 % (0.0-0.8); EOS% 1.1 % (0.0-10.0); HEMOGLOBIN 8.1 g/dL (14.0-18.0); IMM GRAN# 0.03 X1000 (0.0-0.04); IMM GRAN% 0.3 % (0.0-0.5); LYMPH# 1.61 X1000 (1.2-3.4); LYMPH% 17.1 % (20.5-51.1); MCH 30.5 PG (27-31); MCHC 33.8 g/dL (33-37); MCV 90.2 FL (81-99); MONO# 0.96 X1000 (0.11-0.59); MONO% 10.2 % (1.7-9.3); MPV 11.2 FL (7.4-10.4); NEUT% 71.1 % (42.2-75.2); PLT 137 X1000 (130-400); RBC 2.66 XMIL (4.7-6.1)
[2016-12-13] MEDS: HUMALOG SUBQ SCH ×4 (06:27→21:41)
[2016-12-13 07:06] LABS: ALBUMIN 2.8 g/dL (3.5-5.0); CALCIUM 8.4 mg/dL (8.8-10.2)
[2016-12-13] MEDS: FERROUS SULFATE PO SCH (08:27)
[2016-12-13] MEDS: HEPARIN SUBQ SCH ×2 (08:27→21:40)
[2016-12-13] MEDS: CARDIZEM CD PO SCH (08:27)
[2016-12-13] MEDS: PERIDEX MT SCH ×2 (09:16→21:41)
--- NOTE | 2016-12-13 11:03 | PROGRESS NOTE ---
DATE: 12/13/2016 SUBJECTIVE: This patient is resting comfortably on the bed. He states that he wants to go home. He is more attending and answering all my questions. He is oriented x2. He is not oriented in time. He is not complaining about pain. He is tolerating p.o. He denies shortness of breath. No nausea. No vomiting. No fever. No chills. Nephrology department has been consulted because of worsening of kidney function but today the kidney function is getting better. OBJECTIVE: Vital Signs: Temperature 98.6 degrees, pulse 83, respiratory rate 18, blood pressure 157/56, oxygen saturation 95% on room air. HEENT: Head normocephalic. No trauma. PERRLA. Neck: Supple. No JVD. No masses. Central trachea. Chest: Clear to auscultation. No wheezing. No rales. Cardiovascular: RRR. No murmurs. Abdomen: Soft, nontender, nondistended. Obese. Extremities: No clubbing, cyanosis, or edema. Right lower extremity painful at the level of the right hip to palpation. Surgical wound without any sign of bleed or infection. The dressing is clean. Pulses are palpable bilaterally. Neurological Examination: The patient is alert. He is oriented x2. He is not oriented in time. He is answering all my questions. Probably he has a baseline dementia. He is following commands. Laboratory: WBC 9.4, hemoglobin 8.1, hematocrit 24, platelets 137,000. Sodium 139, potassium 4, chloride 105, bicarbonate 20, BUN 45, creatinine 1.6, glucose 144, calcium 8.4. Phosphorus 1.9. Albumin 2.8. ASSESSMENT AND PLAN: 1. Right femoral neck fracture, status post right bipolar hemiarthroplasty. We will continue to monitor. Physical therapy is on board as well. We will continue with pain medication and anticoagulation. [facility] has accepted this patient. We are just waiting for the kidney dysfunction resolution. 2. Acute kidney injury. The BUN and creatinine are getting better. Yesterday was 2.7. Today 1.6, the creatinine. Nephrology department is on board. I will continue with intravenous fluids. 3. Hypertension. The blood pressure is around 150s. We will monitor. 4. Anemia. The hemoglobin is 8.12. Yesterday was 8.3. We will continue to monitor. Probably this is secondary to blood loss secondary to the surgery. 5. Type 2 diabetes with a hemoglobin A1c of 6.3. It looks like this is controlled. We will continue with the same management. We will continue with the sliding scale insulin and pattern of blood sugar. 6. Leukocytosis, resolved. 7. Deep venous thrombosis prophylaxis. This patient is on heparin subcutaneously. 8. Gastrointestinal prophylaxis. Continue with pantoprazole.
--- NOTE | 2016-12-13 11:55 | PROGRESS NOTE ---
DATE: 12/13/2016 SUBJECTIVE: The patient is a pleasant, 81-year-old male who is 3 days status post right bipolar hemiarthroplasty. He is currently resting well this morning. OBJECTIVE: Patient's right lower extremity, his wound looks good. There are no signs of infection. Calf is soft. He has active dorsiflexion and plantar flexion. LABORATORY: His hemoglobin is 8.1 and hematocrit is 24.0. IMPRESSION: Postoperative day #3 status post right bipolar hemiarthroplasty. PLAN: At this point the patient will continue with weightbearing as tolerated right lower extremity and physical therapy. Discharge planning has been consulted for inpatient rehabilitation. He is stable for an orthopedic standpoint.
--- NOTE | 2016-12-13 12:48 | Diag Imaging Result Document ---
PROCEDURE NAME: US RENAL 2 (RETROPER) COMPLETE - 12/13/2016 RENAL ULTRASOUND: COMPARISON: 12/11/2016. FINDINGS: There is no urinary obstruction. Renal sizes remain normal. Global renal echotexture is normal. There is a stable left renal cyst measuring about 9 mm. The urinary bladder is decompressed by a Vaughn catheter and otherwise unremarkable. IMPRESSION: No acute disease or change from prior.
[2016-12-13] MEDS: PROTONIX IV SCH (12:58)
[2016-12-13] MEDS: SODIUM CHLORIDE 0.9% INJ SCH (12:58)
--- NOTE | 2016-12-13 18:20 | CONSULTATION ---
DATE OF CONSULTATION: 12/13/2016 REASON FOR ADMISSION: Right femoral neck fracture. He is status post ORIF. REASON FOR CONSULTATION: Acute kidney injury. CONSULTING PHYSICIAN: Dr. Medina. HISTORY OF PRESENT ILLNESS: This is a 81-year-old gentleman who came into Emergency Room on day of admission secondary to fall and hip pain. He was found to have a right femoral neck fracture and underwent right hemiarthroplasty. His creatinine on admission was 1.2, it had subsequently risen over the last several days at 2.7 and today is back down to 1.6. We have been asked to see him for further evaluation and treatment secondary to his worsening kidney function. He did have a urine studies done yesterday that indicated a FENA 0.18 and had IV fluids restarted. At that time his urine output began picking up and he has been in negative territory with excellent urine output overnight. Patient this morning is awake and alert. He is really unable to give specific history and appeared quite confused at times. Information is obtained from the chart. PAST MEDICAL HISTORY: Hypertension, PVD with iliac stent, BPH on Flomax, diabetes, previous CVA, hyperlipidemia. PAST SURGICAL HISTORY: None prior to the hemiarthroplasty during this hospitalization. ALLERGIES: No known drug allergies. HOME MEDICATIONS: Lisinopril hydrochlorothiazide, diltiazem, Plavix, Zocor, Flomax. FAMILY HISTORY: Noncontributory. SOCIAL HISTORY: Lives alone. His family that attends to his care, no ETOH, tobacco illicit drug use. REVIEW OF SYSTEMS: Pertinent positives noted above in the HPI. EXAM: Vital Signs: Temperature 98.6 degrees, pulse 83, respiratory rate 18, blood pressure 157/56, intake 580 mL, output 1 L. General: This is an elderly gentleman resting in bed. He is awake and alert although does have some confusion when trying to give a history. HEENT: Normocephalic, atraumatic. SUSAN, arcus senilis noted, oral mucosa moist. Neck : Supple, trachea midline, no JVD. Cardiovascular: Regular rate and rhythm without murmur, gallop. Pulmonary: Equal excursion no increased work of breathing. Abdomen: Soft with positive bowel sounds. : He has a Vaughn catheter with pale yellow urine noted. Extremities: He has right lower extremity in abduction pillow noted. No edema, positive pulses. Integumentary: Skin is warm and dry. No rash or lesion. Neuro: He is awake, alert, oriented times 2-3 with confusion grossly nonfocal otherwise. LAB DATA: WBC 9.4, hemoglobin 8.1, hematocrit , platelet count 137, 000. Sodium 139, potassium 4.0, CO2 20, BUN 45, creatinine 1.6, yesterday's creatinine was 2.7 and 2.0 the day before. He had a FENA score yesterday of 0.18. He has renal ultrasound pending. ASSESSMENT AND PLAN: 1. Acute kidney injury secondary to intravascular fluid volume depletion. He has been restarted on IV fluids yesterday and urine output has picked up appreciably. Renal function is close to original baseline. Will check labs in the morning. If no change will sign off at that time. Agree with the current therapy. 2. Electrolytes, acid-base balance, anemia, these are all stable. 3. Femoral neck fracture followed by primary and ortho. Seen, data reviewed, discussed with Amadou Ash on 12/13/15. I agree with the above assessment and plan of care. rg Dictated by SEBASTIAN Quiroz for Binu Adames MD [facility]
[2016-12-13] MEDS: COLACE PO SCH (21:41)
[2016-12-14] MEDS: TYLENOL PO SCH ×2 (00:51→09:20)
[2016-12-14] MEDS: NS 1,000 ML IV SCH (03:00)
[2016-12-14] MEDS ORDERED: SODIUM CHLORIDE 0.9% 10 ML ONE (05:41)
[2016-12-14 05:52] LABS: ALBUMIN 2.8 g/dL (3.5-5.0); CALCIUM 8.7 mg/dL (8.8-10.2); HEMOGLOBIN 7.8 g/dL (14.0-18.0); MCH 29.9 PG (27-31); MCHC 32.5 g/dL (33-37); MPV 11.3 FL (7.4-10.4); POTASSIUM 3.7 mmol/L (3.5-5.1); RBC 2.61 XMIL (4.7-6.1)
[2016-12-14] MEDS: HUMALOG SUBQ SCH ×2 (07:56→12:15)
[2016-12-14] MEDS ORDERED: FLEET ENEMA PR ONE (08:27)
[2016-12-14] MEDS: PERIDEX MT SCH (08:38)
[2016-12-14] MEDS: HEPARIN SUBQ SCH (08:38)
[2016-12-14] MEDS: CARDIZEM CD PO SCH (08:40)
[2016-12-14] MEDS: FERROUS SULFATE PO SCH (08:41)
[2016-12-14] MEDS: OXY IR PO PRN (09:09)
[2016-12-14 11:51] VITALS: BP 146/63
--- NOTE | 2016-12-14 11:54 | DISCHARGE SUMMARY ---
ADMISSION DATE: 12/08/2016 DISCHARGE DATE: 12/14/2016 CONSULTATIONS: Dr. Bai with Orthopedics, Dr. Binu Adames with Nephrology. PERTINENT PROCEDURES: Hemiarthroplasty of the right hip performed by Dr. Bai. Abdominal ultrasound that showed a normal-appearing gallbladder. Renal ultrasound showed no acute disease or change from prior. DISCHARGE DIAGNOSES: 1. Right femoral neck fracture status post right bipolar hemiarthroplasty performed by Dr. Bai. Patient has been working with physical therapy. He is to be weightbearing as tolerated on the right lower extremity. 2. Acute kidney injury secondary to intravascular fluid volume depletion. Patient appears to be back at baseline with a creatinine of 1.4. 3. Hypertension stable. 4. Anemia. Continue with iron supplementation. 5. Diabetes mellitus type 2 with a hemoglobin of 6.3. Continue with metformin. 6. Leukocytosis believed secondary to right femoral neck fracture, resolved. 7. Rhabdomyolysis, resolved. 8. Benign prostatic hypertrophy. Continue Flomax. HOSPITAL COURSE: Briefly, Mr. Wood is a 81-year-old gentleman who has a prior history of hypertension, BPH, diabetes mellitus with prior CVA. He presented to the emergency room for evaluation of right hip pain. He states that he had fallen around 2 o' clock in the afternoon before coming to the emergency room. He was unable to get up off the floor secondary to the pain. He was found by his family around 7 o'clock the morning of admission , about 19 or 20 hours after he had fallen. He denied any dizziness, chest pain, syncope. He states he just lost his footing and fell. Patient was noted to have a shortened and rotated right lower extremity. Hip and pelvis x-ray did reveal a right femoral neck fracture which is transverse with varus angulation. No dislocation but it did show surgical clips over the inguinal region and common iliac stents. The patient was admitted to the surgical floor with an orthopedic consult. He was started on aggressive IV fluid hydration with repeat CPKs. On arrival his creatinine was 1.2. Dr. Bai did assess the patient. He did undergo a right bipolar hemiarthroplasty. The patient did develop an acute kidney injury secondary to fluid volume depletion. Again he was continued to be aggressively hydrated. A renal ultrasound did not show anything acute. Abdominal ultrasound did not find any obstructions or hydronephrosis. Patient's creatinine did get up to 2.7. Dr. Adames was consulted. Again this was after the patient had been started on IV fluid hydration and his BUN was 45 and his creatinine was 1.6. He agreed with IV fluids. Today his BUN is 40 and his creatinine is 1.4 which seems to be back at his historical baseline. Patient was able to work with PT and psych social worker was consulted for rehab placement. The patient is being discharged to [facility] today. He does have some changes in his home medications. His Plavix is being held. Patient will be started on Xarelto for his DVT prophylaxis. This is 10 mg p.o. daily. He will hold his Plavix until 35 days and then after that, he will resume. His lisinopril hydrochlorothiazide has also been held secondary to his acute kidney injury as well as his potassium. He will need to follow up with his primary care physician after rehab to resume these medications. DISCHARGE MEDICATIONS: 1. Tylenol 1000 mg p.o. every 8 hours as needed. 2. Colace 200 mg p.o. at bedtime. 3. Ferrous sulfate 325 mg p.o. with breakfast daily. 4. Milk of Mag 30 mL p.o. p.r.n. a.m. daily. 5. Diltiazem ER 1 dose daily as directed. 6. Metformin ER 1 dose twice daily. 7. Prilosec 1 dose oral as directed. 8. Zocor 1 dose as directed. 9. Flomax 1 dose oral daily. FOLLOWUP: The patient is being discharged to [facility] with a diabetic diet. He will be weightbearing on the right extremity as tolerated. He will need to follow up with his primary care physician Dr. Conor Fraser after rehab as well as Dr. Bai as indicated. The patient to return to the ED for any worsening of symptoms. Discharge time 36 minutes. Dictated by SEBASTIAN Matthew for Sebas Celis MD [facility]
[2016-12-14] MEDS: PROTONIX IV SCH (12:10)
== END 2016-12-14 13:08 | DRG 470 ==
LOC: P.ED 08:06 → 4N 08:07
PROVIDERS: ATTEND Internal Medicine
PROC: 0SRR0JA Replacement of Right Hip Joint, Femoral Surface with Synthetic Substitute, Uncemented, Open Approach (ICD-10-PCS; principal; 2016-12-08)
DX: S72.001A Fracture of unspecified part of neck of right femur, initial encounter for closed fracture (principal); N17.9 Acute kidney failure, unspecified; M62.82 Rhabdomyolysis; E11.51 Type 2 diabetes mellitus with diabetic peripheral angiopathy without gangrene; D62 Acute posthemorrhagic anemia; E86.9 Volume depletion, unspecified; I10 Essential (primary) hypertension; E78.5 Hyperlipidemia, unspecified; K21.9 Gastro-esophageal reflux disease without esophagitis; N40.0 Benign prostatic hyperplasia without lower urinary tract symptoms; H54.42 Blindness, left eye, normal vision right eye; Z79.899 Other long term (current) drug therapy; Z79.02 Long term (current) use of antithrombotics/antiplatelets; Z86.73 Personal history of transient ischemic attack (TIA), and cerebral infarction without residual deficits; W01.0XXA Fall on same level from slipping, tripping and stumbling without subsequent striking against object, initial encounter
CPT/HCPCS: 36415; 51702; 71010; 76700; 76770; 80048; 80053; 80069; 81001; 82550; 82570; 82948; 83036; 84156; 84300; 85025; 85027; 85610; 85730; 86850; 86900; 86901; 87088; 87205; 88305; 88311; 93005; 94761; 96374; 96375; C9113; J0131; J0690; J1630; J1644; J1815; J2270; J2405; J7030; J7040; J7120; P9047; 97110-GP; 97530-GP; S0164

== ENCOUNTER 2016-12-16 10:00 | Inpatient (IN) ==
[2016-12-16] MEDS ORDERED: NS 500 ML IV ONE (10:07)
[2016-12-16] MEDS ORDERED: HUMULIN R IV ONE ×2 (10:07→10:28)
--- NOTE | 2016-12-16 10:08 | PROVIDER DOCUMENTATION ---
HPI-General Adult - General Source: patient, EMS, correction records - History of Present Illness -Gen Adult Nature of Presenting Problems: Patient is a 81 y/o M that presents to the ER from [facility] after having an episode of AMS. half-way staff reports patient is there for 21 day rehab post right hip surgery. This morning he had a brief episode in which he did not respond to them. After a few minutes, he came to. Patient denies any pain or symptoms now( fever/chills, cough, chest pain, shortness of breath). His blood sugar is over 300mg/dl. 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 Location of Pain/Injury: reports: none Pain Radiation: reports: no radiation Quality of Pain: reports: none Severity: reports: mild Onset/Duration: reports: abrupt, this morning Timing: reports: gone now Context/Activities at Onset: reports: other (recent surgery to right hip) Modifying Factors: improves with: nothing Associated Symptoms: denies: chest pain, cough, diaphoresis, diarrhea, dizziness , fever/chills, genitourinary problems, nausea, rash, shortness of breath, weakness Similar Symptoms Previously?: No Recently seen or treated by another doctor?: Yes <Delmar Moreno - Last Filed: 12/16/16 13:33> <Mika Hyatt - Last Filed: 12/16/16 16:27> - General Stated Complaint: elevated blood sugar Time Seen by Provider: 12/16/16 10:06 Allergies/Adverse Reactions: Patient Allergies Allergy/AdvReac Type Severity Reaction Status Date / Time No Known Allergies Allergy Verified 12/16/16 10:15 Home Medications: Home Medication List Medication Instructions Recorded Confirmed Last Taken Type Diltiazem HCl [Diltiazem ER] 1 dose PO DIRECTED 12/08/16 12/16/16 12/16/16 History Metformin E.r. [Glucophage Xr] 1 dose BID 12/08/16 12/16/16 12/16/16 History Omeprazole 1 dose PO DIRECTED 12/08/16 12/16/16 12/16/16 History SIMVAstatin [Zocor] 1 dose PO DIRECTED 12/08/16 12/16/16 12/16/16 History Tamsulosin [Flomax] 1 dose PO DAILY 12/08/16 12/16/16 12/16/16 History Acetaminophen [Tylenol] 1,000 mg PO Q8H #0 tablet 12/14/16 12/16/16 12/16/16 Rx Docusate Sodium [Colace] 200 mg PO QHS #0 capsule 12/14/16 12/16/16 12/16/16 Rx Ferrous Sulfate 325 mg PO WBREAKFAST #0 tablet 12/14/16 12/16/16 12/16/16 Rx Magnesium Hydroxide [Milk of 30 ml PO DAILY PRN PRN #0 udc 12/14/16 12/16/1612/03 Rx Magnesia] Rivaroxaban [Xarelto] 10 mg PO DAILY #35 tablet 12/14/16 12/16/16 12/16/16 Rx Hydrocodone/Acetaminophen [[place] 1 tab PO Q4H PRN PRN 12/16/16 12/16/16 1 Day Ago History 5-325 Tablet] Review of Systems - Adult - REVIEW OF SYSTEMS - ADULT Constitutional: denies: chills, fever Eyes: reports: no symptoms reported Ears, Nose, Mouth & Throat: reports: no symptoms reported Cardiovascular: denies: chest pain, palpitations, syncope Respiratory: denies: cough, shortness of breath, wheezing Gastrointestinal: denies: abdominal pain, diarrhea, nausea, vomiting Genitourinary: denies: dysuria, frequency, hematuria Musculoskeletal: denies: back pain, muscle aches, neck pain Integumentary: reports: no symptoms reported Neurological: reports: other (episode of ams). denies: dizziness/vertigo, seizure, syncope Psychiatric: reports: no symptoms reported Endocrine: reports: no symptoms reported Hematologic/Lymphatic: reports: no symptoms reported Allergic/Immunologic: reports: no symptoms reported All Other Systems: Reviewed and Negative <Delmar Moreno - Last Filed: 12/16/16 13:33> Past History - Adult - PAST MEDICAL HISTORY-ADULT Review of Records: reports: Old Records Reviewed, Nursing Assessment Review, Medications Reviewed Cardiovascular: reports: HTN Genitourinary: reports: kidney disease Neurological: reports: CVA, stroke deficits (right sided weakness) - PRIOR SURGERIES/PROCEDURES Surgical/Procedure History: reports: recent surgery (right hip) - IMMUNIZATION STATUS Childhood Immunizations: See Nurse Assessment Flu Vaccine: See Nurse Assessment - SOCIAL HISTORY Smoking: non-smoker Living Situation: care facility (at 21 day rehab) <Delmar Moreno - Last Filed: 12/16/16 13:33> Physical Exam-General - PHYSICAL EXAM-ADULT Initial Vital Signs Reviewed: Yes - CONSTITUTIONAL General Appearance: alert, no apparent distress - EYES Eyes: PERRL/EOMI, pink conjunctivae - HEAD, EARS, NOSE, MOUTH & THROAT HENMT: normocephalic/atraumatic, moist mucous membranes, normal ENT inspection - NECK Neck: non-tender, full range of motion, normal inspection - RESPIRATORY Respiratory: lungs clear, normal breath sounds, no respiratory distress, no accessory muscle use - CARDIOVASCULAR Cardiovascular: regular rate, rhythm, no edema, no murmur - GASTROINTESTINAL (ABDOMEN) Abdominal Exam: normal bowel sounds, non tender, soft, no organomegaly, no pulsatile mass - GENITOURINARY Rectal Exam: normal exam, normal rectal tone. negative: black stool, blood streaked stool, hemorrhoids Hemoccult Exam: heme negative stool - MUSCULOSKELETAL Extremity: no pedal edema, no calf tenderness, normal capillary refill - SKIN Integumentary: normal color, warm/dry, other (post op wound is well healing, no signs of infection) - PSYCHIATRIC Psych/Mental Status: normal mood/affect, other (normal to his baseline) <Delmar Moreno - Last Filed: 12/16/16 13:33> - GENITOURINARY Rectal Exam: other (stool was benoit in color and guiac negative.) <Mika Hyatt - Last Filed: 12/16/16 16:27> Progress - PLAN OF CARE/RESULTS Progress/Plan/Lab Results: plan of care-labs, ekg, fluids, meds 1220-Awaiting return call from Vital Signs Temp Pulse Resp BP Pulse Ox 12/16/16 10:06 97.6 F 68 20 110/55 97 No Known Allergies Allergy (Verified 12/16/16 10:15) Diltiazem HCl [Diltiazem ER] 1 dose PO DIRECTED 12/08/16 Metformin E.r. [Glucophage Xr] 1 dose BID 12/08/16 Omeprazole 1 dose PO DIRECTED 12/08/16 SIMVAstatin [Zocor] 1 dose PO DIRECTED 12/08/16 Tamsulosin [Flomax] 1 dose PO DAILY 12/08/16 Acetaminophen [Tylenol] 1,000 mg PO Q8H #0 tablet 12/14/16 Docusate Sodium [Colace] 200 mg PO QHS #0 capsule 12/14/16 Ferrous Sulfate 325 mg PO WBREAKFAST #0 tablet 12/14/16 Magnesium Hydroxide [Milk of Magnesia] 30 ml PO DAILY PRN PRN #0 udc 12/14/16 Rivaroxaban [Xarelto] 10 mg PO DAILY #35 tablet 12/14/16 Hydrocodone/Acetaminophen [[place] 5-325 Tablet] 1 tab PO Q4H PRN PRN 12/16/16 Laboratory 12/16/16 12/16/16 12/16/16 12:41 10:18 10:18 WBC RBC Hgb Hct MCV MCH MCHC RDW Std Deviation Plt Count MPV Immature Gran % (Auto) Neut % (Auto) Lymph % (Auto) Dickenson % (Auto) Eos % (Auto) Baso % (Auto) Immature Gran # (Auto) Neut # (Auto) Lymph # (Auto) Dickenson # (Auto) Eos # (Auto) Baso # (Auto) Sodium 139 Potassium 4.4 Chloride 106 Carbon Dioxide 22 L Anion Gap 11 BUN 45 H Creatinine 1.4 H Estimated GFR/1.73 m2 59 BUN/Creatinine Ratio 32 Glucose 255 H Calculated Osmolality 298 Calcium 9.0 Total Bilirubin 0.85 AST 53 H ALT 30 Alkaline Phosphatase 71 Troponin T 0.129 H 0.151 H Total Protein 5.9 L Albumin 2.6 L Globulin 3.3 Albumin/Globulin Ratio 0.8 12/16/16 10:18 WBC 15.92 H RBC 2.41 L Hgb 7.2 L Hct 21.8 L MCV 90.5 MCH 29.9 MCHC 33.0 RDW Std Deviation 14.2 Plt Count 186 MPV 11.0 H Immature Gran % (Auto) 0.3 Neut % (Auto) 89.9 H Lymph % (Auto) 3.8 L Dickenson % (Auto) 5.7 Eos % (Auto) 0.2 Baso % (Auto) 0.1 Immature Gran # (Auto) 0.04 Neut # (Auto) 14.32 H Lymph # (Auto) 0.60 L Dickenson # (Auto) 0.91 H Eos # (Auto) 0.03 Baso # (Auto) 0.02 Sodium Potassium Chloride Carbon Dioxide Anion Gap BUN Creatinine Estimated GFR/1.73 m2 BUN/Creatinine Ratio Glucose Calculated Osmolality Calcium Total Bilirubin AST ALT Alkaline Phosphatase Troponin T Total Protein Albumin Globulin Albumin/Globulin Ratio Orders Category Date Time Status Saline Loc NOW Care 12/16/16 10:07 Active CBC WITH ELECTRONIC DIFF [HEME] Stat Lab 12/16/16 10:18 Completed COMPREHENSIVE METABOLIC PANEL [CHEM] Stat Lab 12/16/16 10:18 Completed Stool [OCCULT BLOOD SCREENING] [STOOL] Stat Lab 12/16/16 11:23 Completed TROPONIN T Stat Lab 12/16/16 10:18 Completed TROPONIN T Stat Lab 12/16/16 12:41 Completed 0.9% Sodium Chloride Inj [Ns] 500 ml Med 12/16/16 10:07 Discontinued IV 999 mls/hr Hydrocodone/APAP 5 mg/325 mg [[place]-5] Med 12/16/16 11:39 Discontinued 1 each PO NOW ONE Insulin Human Regular [Humulin R] Med 12/16/16 10:07 Discontinued 5 unit IV NOW ONE Insulin Human Regular [Humulin R] Med 12/16/16 10:28 Discontinued 5 unit IV NOW ONE EKG [EKG] Stat Ther 12/16/16 10:07 Ordered - CONSULTS/PCP/HOSPITALIST Notification #1 *Consult/PCP/Hospitalist*: ( general manager road production for hospitalist) Time Discussed: 13:34 Consult Disposition: Admit <Delmar Moreno - Last Filed: 12/16/16 13:33> Departure - Departure Time of Disposition Order: 13:35 Certified Medical Emergency: Emergent <Delmar Moreno - Last Filed: 12/16/16 13:33> <Mika Hyatt - Last Filed: 12/16/16 16:27> - Departure DIAGNOSIS: Elevated troponin, Chronic anemia Syncope Qualifiers: Syncope type: unspecified Qualified Code(s): R55 - Syncope and collapse Disposition: ADMITTED INPATIENT 09 Condition: Stable Attestation - Scribe Verification/Attestation Scribe:: Delmar Moreno Acting as Scribe for:: Mika Hyatt Scribe documention review:: This chart was documented by a scribe and accurately reflects the service the provider performed and the decisions made by the provider. <Delmar Moreno - Last Filed: 12/16/16 13:33> Physician Attestation - Physician Attestation I, the provider, attest to the following statement:: Mika Hyatt Physician documentation Attestation:: This documentation recorded by the scribe accurately reflects the service I personally performed and the decisions made by me. <Delmar Moreno - Last Filed: 12/16/16 13:33>
[2016-12-16 10:44] LABS: BASO% 0.1 % (0.0-0.8); EOS# 0.03 X1000 (0.0-0.7); EOS% 0.2 % (0.0-10.0); HEMATOCRIT 21.8 % (42.0-52.0); HEMOGLOBIN 7.2 g/dL (14.0-18.0); IMM GRAN# 0.04 X1000 (0.0-0.04); IMM GRAN% 0.3 % (0.0-0.5); LYMPH% 3.8 % (20.5-51.1); MANUAL DIFF NEEDED? NO; MCH 29.9 PG (27-31); MCV 90.5 FL (81-99); MONO# 0.91 X1000 (0.11-0.59); MONO% 5.7 % (1.7-9.3); NEUT% 89.9 % (42.2-75.2); PLT 186 X1000 (130-400); RBC 2.41 XMIL (4.7-6.1)
[2016-12-16 10:53] LABS: ALBUMIN 2.6 g/dL (3.5-5.0); POTASSIUM 4.4 mmol/L (3.5-5.1); TOTAL BILIRUBIN 0.85 mg/dL (0.20-1.00); TOTAL PROTEIN 5.9 g/dL (6.3-8.3)
[2016-12-16] MEDS ORDERED: NORCO-5 PO ONE (11:39)
--- NOTE | 2016-12-16 15:22 | HISTORY AND PHYSICAL ---
PRIMARY CARE PROVIDER: No one. CHIEF COMPLAINT: Syncope. HISTORY OF PRESENT ILLNESS: Mr. Bryn Wood is a 81-year-old, male with past medical history of hypertension, diabetes, and prior CVA who recently had a right displaced femoral neck fracture now status post hemiarthroplasty on the right hip. The procedure was done on 12/08/2016. Has been residing at [place] for rehabilitation. Apparently he was receiving occupational therapy, and was said that he had passed out. It is unknown if he hit the floor or hit his head. He arrived to the ER and it was found that he had elevated glucose and also elevated troponins along with a low hemoglobin and hematocrit so this could be multifactorial. EKG does not show any signs of ST elevations but during assessment it is notable that he has left pupil that is around a 4 and reactive and the right pupil is around 2 and reactive. He is trace weaker on the right but this is secondary to his history of a previous stroke. Will admit him to the medical floor, work him up for syncope, rule out new stroke or myocardial infarction. 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 There is no history of dementia although patient does have a difficult time with memory. SURGICAL HISTORY: Recent right hemiarthroplasty. Cataract surgery. SOCIAL HISTORY: Denies tobacco, alcohol, or illicit drug use. Currently in [facility] for rehabilitation. ALLERGIES: No known drug allergies. HOME MEDICATIONS: [place] 5 mg tablets 1 p.o. q.4 hours. Diltiazem 300 mg p.o. daily. Flomax 0.4 mg p.o. daily. Metformin 500 mg p.o. twice daily. Omeprazole 20 mg p.o. daily. Zocor 40 mg p.o. daily. Milk of magnesia 30 mL p.o. daily. Colace 200 mg p.o. nightly. Ferrous sulfate 325 p.o. with breakfast. Tylenol 1000 mg p.o. every 8 hours. Xarelto 10 mg p.o. daily. REVIEW OF SYSTEMS: Difficult to obtain but denies chest pain or any other pains. Denies shortness of breath. Denies nausea, vomiting, or diarrhea. Denies fever or chills. LABORATORY DATA: White blood cells 15,000, hemoglobin 7, hematocrit 21, platelet count 186,000. Sodium 139, potassium 4.4, BUN 45, creatinine is 1.4. Glucose 255. Calcium 9.0. Total bilirubin 0.85, AST 53, ALT 30, troponin 0.129, albumin 2.6. Urinalysis pending. IMAGING: Chest x-ray pending. MRI, MRA of the brain and neck pending. EKG without ST elevations. PHYSICAL EXAMINATION: VITAL SIGNS: Temperature 97.6 degrees, heart rate 68, respiratory rate 20, blood pressure 110/55, O2 saturation 97% on room air. 5 feet 8 inches tall, 190 pounds. BMI is 28.9. GENERAL: Mr. Wood is a 81-year-old, male, he is in no acute distress. He answers some questions appropriately but not all. HEENT: Atraumatic, normocephalic. Pupils equal, round, reactive to light. Extraocular movements intact. Pupils are actually unequal but reactive. Left pupil is 4 mm and the right pupil is 2 mm with a glossy glare secondary to cataract surgery. NECK: No JVD or carotid bruits noted. CARDIOVASCULAR: S1, S2. Regular rate and rhythm. No rubs, gallops, murmurs. PULMONARY: Clear to auscultation bilateral breath sounds. No accessory muscle use or work of breathing noted. GI: Soft, nontender, nondistended. Positive bowel sounds x4. EXTREMITIES: No edema noted. +2 dorsalis and radial pulses. The patient does not straighten both legs out but they are both very strong in strength and his PND. NEURO: He is oriented to name, date, and year but not to place. Speech was mildly dysarthric but this could be normal for him given his history of CVA. He was about a 4.5 nearly 5/5 strength on the right and a 5/5 on the left. Face was symmetric. SKIN: Warm, dry, intact. ASSESSMENT AND PLAN: 1. History of CVA now with syncope and unequal pupils. Will order MRI and MRA of the brain and neck to further evaluate for risk of stroke. 2. Elevated troponins. No history of myocardial infarction or CAD. Will rule out for acute coronary syndrome and we will do q.8 hour CKs and troponins x3, an echocardiogram and consult Cardiology per Dr. Lin. 3. Hypertension. Continue home medications. 4. Peripheral vascular disease. 5. BPH. Continue Flomax. 6. Diabetes mellitus with hyperglycemia. We will do sliding scale insulin and pattern blood glucoses. 7. Hyperlipidemia. Continue home medications. 8. Recent right hip hemiarthroplasty. Will consult Dr. Bai for followup visit. Will continue Xarelto for DVT prophylaxis. 9. Gastrointestinal prophylaxis. Proton pump inhibitor. 10. Deep venous thrombosis prophylaxis. He is on Xarelto. Dictated by SEBASTIAN Fregoso for Sebas Celis MD
[2016-12-16] MEDS ORDERED: TYLENOL PO PRN (15:47)
[2016-12-16] MEDS ORDERED: ZOFRAN IV PRN (15:47)
--- NOTE | 2016-12-16 16:20 | Diag Imaging Result Document ---
PROCEDURE NAME: MRA BRAIN W/O CONTRAST - 12/16/2016 MRA OF THE BRAIN: FINDINGS: There appears to be less distal flow in the middle cerebral artery on the right than on the left side. There is no evidence of aneurysm. The apparent diameter of the cavernous portion of both internal carotids is narrowed. This may be artifactual. IMPRESSION: The possibility of small vessel disease in the distal portion of the right middle cerebral artery is suggested.
--- NOTE | 2016-12-16 16:21 | Diag Imaging Result Document ---
PROCEDURE NAME: MRI BRAIN W/O CONTRAST - 12/16/2016 MRI OF THE BRAIN: FINDINGS: There is extensive abnormal T2 weighted signal intensity throughout the white matter of both hemispheres. There is a small lacune in the upper cyrus on the right. There is a lacune in the centrum semiovale on the right. Small lacune or perivascular space enlargement seen throughout both basal ganglia regions. There is no evidence of restricted diffusion. There is no evidence of bleed or abnormal extra-axial fluid collection. IMPRESSION: No evidence of acute disease. Extensive chronic microvascular disease.
--- NOTE | 2016-12-16 16:22 | Diag Imaging Result Document ---
PROCEDURE NAME: MRA NECK W/O CONT - 12/16/2016 MRA OF THE NECK: The study is suboptimal. FINDINGS: There is considerable degradation by patient motion. There is flow seen through the majority of both vertebral and internal carotid arteries as well as the distal portions of the common carotids. IMPRESSION: No gross abnormality.
[2016-12-16 17:09] LABS: IRON SATURATION 9 %; TIBC 169 ug/dL; TOTAL IRON 16 ug/dL (53-167); UNBOUND IRON 153 ug/dL (112-346)
--- NOTE | 2016-12-16 17:13 | Diag Imaging Result Document ---
PROCEDURE NAME: CHEST-PORTABLE - 12/16/2016 AP CHEST, PORTABLE: TIME: 1545 hours. FINDINGS: Considering differences in technique there has been no significant change since the previous study of 12/08/2016. IMPRESSION: Stable chest.
[2016-12-16] MEDS: NORCO-5 PO PRN (17:33)
--- NOTE | 2016-12-16 17:39 | CONSULTATION ---
DATE OF CONSULTATION: 12/16/2016 INDICATION FOR THE CONSULTATION: Altered mental status. HISTORY OF PRESENT ILLNESS: Mr. Wood is a 81-year-old black male with a recent history of hip fracture with subsequent transfer to [facility] for rehab. He was admitted the 08 of December and discharged on the . He presented back this morning. We have no documents from the long-term detailing the event, but apparently the patient was not responsive. It does not seem like it was a witnessed syncopal event, but rather was in bed and just would not wake up. EMS note said the patient on arrival was responsive with a GCS of 15 and was alert and oriented x3. During my evaluation the patient had no complaints. His son is present with him and says he is not as coherent as he usually is. He apparently has not been eating and drinking as much. He has only been at rehab for a couple of days now and has not been very active in his rehab. There has been no issues with dysuria. Patient has no complaints of chest pain. No nausea or vomiting. There are no apparent issues with bleeding acutely in the facility. PAST MEDICAL HISTORY: 1. Hypertension. 2. History of peripheral vascular disease with previous iliac stents. 3. Diabetes mellitus. 4. Apparent prior CVA. 5. Hyperlipidemia. SOCIAL HISTORY: No alcohol, tobacco or illicit drugs. He has been a resident for a little over a day at [facility]. FAMILY HISTORY: Significant for hypertension. REVIEW OF SYSTEMS: A 10 point review of systems is negative, but I do not think it is very reliable given his lack of coherence. PHYSICAL EXAMINATION: Vitals: He is afebrile. Heart rate is 60s to 70s. Blood pressure 131/69. Generally: The patient is in no acute distress. HEENT: Oropharynx is moist. He is almost completely edentulous. Eye examination shows pale conjunctivae, white sclerae. Neck: Examination shows no obvious thyromegaly or thyroid tenderness. Cardiovascular: He is in a regular rate and rhythm. He has no obvious murmurs. There is no S3 present. He has no S4. He has no lower extremity edema. Chest: Exam sounds clear, but he has poor inspiratory effort. No increased work of breathing. Abdomen: Soft and nontender. No obvious organomegaly. Skin: Warm and dry throughout without any rashes. Neurological: He is moving all extremities well. Cranial nerves 2-12 are intact. No sensation deficits. Psychiatric: Patient attempts to answer all questions, but according to his son many of his answers are inaccurate. He is calm. PERTINENT DATA: MRA of the neck shows no evidence of any abnormalities. MRI of the brain shows no evidence of acute disease. Extensive chronic microvascular changes. MRA of the brain shows possibility of small-vessel disease in the distal portion of the right middle cerebral artery. His EKG here shows what appears to be atrial fibrillation. He has a rate of 76 beats per minute. No signs of ischemic changes. He does have some slight nonspecific ST-T changes. He has an EKG to compare on 12/08/2016. That study appears to show sinus rhythm with possible sinus arrhythmia. White count of 15.9. His hematocrit is 21.8. His discharge hematocrit on the was 24. His platelet count was 186,000. MCV of 90. Sodium 139, potassium 4.4, BUN 45, creatinine 1.4. Troponin initially was 0.151. Second set 2 hours later was 0.129 and 3rd set 6 hours after initial was 0.141. ASSESSMENT: 1. Asymptomatic troponinemia. 2. Episode of altered mental status. 3. Recent hip fracture. 4. Acute blood loss anemia. 5. Leukocytosis. Leukocytosis is being evaluated by the primary team. He has cultures pending. I will transfuse him 1 unit of blood as his hematocrit is 21.8 and the patient is significantly altered. His EKG shows atrial fibrillation, which seems to be a new onset for the patient. Considering his anemia, we will have to assess his long-term ability to take anticoagulation, but presently he is on Xarelto 10. We would likely consider escalation of that medication up to 15. Echocardiogram is currently pending. He has a normal EF based on limited imaging at the bedside. TSH will be checked.
[2016-12-16] MEDS: HUMULIN R SUBQ SCH ×2 (18:24→22:56)
[2016-12-16] MEDS: NS 1,000 ML IV SCH (18:50)
--- NOTE | 2016-12-16 19:08 | ECHO REPORT ---
ORDER DATE: 12/16/2016 INTERPRETING PHYSICIAN: Dr. Fajardo REQUESTING PHYSICIAN: CLINICAL INDICATIONS: A 81-year-old male with syncope, abnormal cardiac enzymes. M-MODE MEASUREMENTS: Right ventricle: 3.4 cm. Left ventricle end diastole: 3.8 cm. Left ventricle end systole: 2.4 cm. Posterior wall: 1.3 cm. Interventricular septum: 1.3 cm. Left atrium: 3.9 cm. Aortic root: 3.9 cm. SUMMARY OF 2-DIMENSIONAL IMAGING: The left ventricular function is normal. Ejection fraction estimated at 67%. The chamber is mild to moderately enlarged. The right ventricle appears to be mildly enlarged. Both atria are dilated significantly. The patient is in atrial fibrillation. The mitral annulus shows a mild degree of calcification. Color flow mapping shows no regurgitation. The tricuspid valve shows a mild degree of regurgitation. Pulmonary pressure estimated at 38 mmHg. The pulmonic valve looks normal. Color flow mapping unremarkable. The aortic valve shows sclerosis of the cusps without stenosis. Color flow mapping indicates a mild degree of aortic regurgitation. There is no pericardial effusion, masses or thrombi. IMPRESSION: In summary, this study shows: 1. A mild degree of concentric LVH with a moderately enlarged left ventricular chamber. Ejection fraction 67%. 2. Significantly dilated atria, both right and left. 3. Calcification of mitral annulus. 4. Diastolic function cannot be evaluated. The patient is in atrial fibrillation. 5. Mild degree of tricuspid regurgitation. Pulmonary pressure 38 mmHg. 6. Thickening of aortic valve cusps without stenosis. Clinical correlation recommended.
[2016-12-17] MEDS: HUMULIN R SUBQ SCH ×4 (06:04→23:03)
[2016-12-17 06:23] LABS: MANUAL DIFF NEEDED? NO
[2016-12-17] MEDS: COLACE PO SCH ×2 (06:25→21:41)
[2016-12-17] MEDS: PRILOSEC PO SCH ×3 (06:25→21:41)
[2016-12-17] MEDS: ZOCOR PO SCH ×2 (06:26→21:41)
[2016-12-17 06:52] LABS: BASO% 0.2 % (0.0-0.8); EOS% 0.8 % (0.0-10.0); HEMATOCRIT 20.9 % (42.0-52.0); HEMOGLOBIN 6.7 g/dL (14.0-18.0); IMM GRAN# 0.03 X1000 (0.0-0.04); IMM GRAN% 0.2 % (0.0-0.5); LYMPH# 1.14 X1000 (1.2-3.4); LYMPH% 9.2 % (20.5-51.1); MCH 29.1 PG (27-31); MCHC 32.1 g/dL (33-37); MCV 90.9 FL (81-99); MONO# 0.79 X1000 (0.11-0.59); MONO% 6.3 % (1.7-9.3); MPV 10.5 FL (7.4-10.4); NEUT% 83.3 % (42.2-75.2); PLT 224 X1000 (130-400)
[2016-12-17 06:58] LABS: AGAP 13; ALBUMIN 2.3 g/dL (3.5-5.0); ALKALINE PHOSPHATASE 101 U/L (32-122); BUN 38 mg/dL (8-22); CALCIUM 8.6 mg/dL (8.8-10.2); CHLORIDE 109 mmol/L (98-107); COSMO 295; GOT 51 U/L (10-34); GPT 35 U/L (10-44); MAGNESIUM 1.7 mg/dL (1.5-2.7); POTASSIUM 4.3 mmol/L (3.5-5.1); SODIUM 143 mmol/L (136-145); TCO2 21 mmol/L (25-35); TOTAL BILIRUBIN 0.67 mg/dL (0.20-1.00); TOTAL PROTEIN 5.3 g/dL (6.3-8.3)
[2016-12-17 07:01] LABS: INR 1.18; PROTIME 12.5 Seconds (9.2-11.7); PTT 37.8 Seconds (22.0-36.0)
[2016-12-17] MEDS: FERROUS SULFATE PO SCH (08:14)
[2016-12-17] MEDS: CARDIZEM CD PO SCH (08:14)
[2016-12-17] MEDS: FLOMAX PO SCH (08:14)
[2016-12-17] MEDS: NORCO-5 PO PRN ×2 (08:51→21:40)
[2016-12-17] MEDS ORDERED: XARELTO PO SCH (09:00)
--- NOTE | 2016-12-17 12:32 | PROGRESS NOTE ---
DATE: 12/17/2016 SUBJECTIVE: Mr. Wood is a 81-year-old male. He is in no acute distress. He is resting comfortably in bed. He was oriented x3. Moved all extremities equally. Currently receiving blood for low hemoglobin and hematocrit. Denies any pain or dizziness, nausea or vomiting. PHYSICAL EXAMINATION: Vital Signs: Temperature is 98.1 degrees, heart rate 84, respiratory rate 18, blood pressure 122/47, O2 saturation 95% on room air. General: Mr. Wood is a 81-year-old male in no acute distress, able to answer all questions appropriately. Cardiovascular: Irregularly irregular rate and rhythm. No rubs, gallops, murmurs. Pulmonary: Clear to auscultation. Bilateral breath sounds. No accessory muscle use or work of breathing noted. Gastrointestinal: Soft, nontender, nondistended. Positive bowel sounds x4. Extremities: No edema noted. Dorsalis and radial pulses +2. Skin: Warm, dry, intact. LABORATORY DATA: White blood cells 12,000, hemoglobin 6.7, hematocrit 20.9, platelet count 224,000. INR 1.18. PTT is 37.8. Sodium 143, potassium 4.3, BUN 38, creatinine 1.2, glucose 117, calcium 8.6, magnesium 1.7, total bilirubin 0.67, AST 51, ALT 35. CK 386. Troponin 0.170. Albumin 2.3. TSH 1.98. IMAGING: Echocardiogram: Ejection fraction 67%, mild degree of LVH. The patient was in atrial fibrillation. Diastolic function could not be evaluated. There is mild TR normal, pulmonic pressure of 38 mmHg, thickening of the aortic valve without stenosis. Neck MRA: No gross abnormality. The majority of both vertebral and internal carotid arteries and the distal portions of the common carotid arteries had flow. Brain MRI: No evidence of acute disease. Extensive chronic microvascular disease. Brain MRA: Possibility of small vessel disease in the distal portion of the right middle cerebral artery. Chest x-ray: Stable. ASSESSMENT AND PLAN: 1. Syncope, history of cerebrovascular accident, he is in atrial fibrillation and he is anemic, so MRA and MRI of the brain and neck ruled out stroke. Pupils could be chronically unequal. The left pupil stays at 4 and the right is 2. They are both reactive. Cardiac-dykes, he is in atrial fibrillation with a controlled rate. He takes Cardizem daily. Echocardiogram showed no signs of vegetation. He had a normal ejection fraction and pulmonary artery pressures were not extremely high, although he does have now a lower hemoglobin and hematocrit and this could be what caused his syncopal spell. He is receiving a unit of blood. Will continue to trend and may transfuse as needed, but this could be secondary to his recent surgical procedure. 2. Troponinemia. No history of myocardial infarction or coronary artery disease. Echocardiogram was normal. Cardiology is following. 3. Hypertension. Continue home medications. 4. Peripheral vascular disease. 5. Benign prostatic hypertrophy. Continue Flomax. 6. Diabetes mellitus type 2 with hyperglycemia, stable. Continue sliding scale insulin, pattern blood glucoses. 7. Hyperlipidemia. Continue home medications. 8. Recent right hip are hemiarthroplasty. Currently, Xarelto has been put on hold by Cardiology, given the low hemoglobin and hematocrit. Will do SCDs for DVT prophylaxis. has been consulted in regards to the surgery for possible followup. 9. Anemia with iron deficiency anemia. Will continue with iron supplementation. He is going to get 1 unit of packed red blood cells. Will recheck a hemoglobin and hematocrit at 12 noon, but his vitals are stable. There are no obvious signs of acute bleeding. 10. Leukocytosis. He is afebrile. I will order a urinalysis, as it appears there may not have been one done, and blood cultures as of right now are negative. 11. Mild transaminitis. Will continue to follow. 12. Protein calorie malnutrition. Continue with Heart Healthy diet. Dictated by SEBASTIAN Fregoso for Sebas Celis MD
[2016-12-17] MEDS: NS 1,000 ML IV SCH (12:36)
--- NOTE | 2016-12-17 12:42 | EKG Report ---
Test Performed on : 12/17/2016 11:14:30 AM Test Reason : evaluate afib Blood Pressure : / mmHG Vent. Rate : 075 BPM Atrial Rate : 097 BPM P-R Int : 000 ms QRS Dur : 094 ms QT Int : 400 ms P-R-T Axes : 000 043 127 degrees QTc Int : 446 ms Atrial fibrillation. Minimal voltage criteria for LVH, may be normal variant ST & T wave abnormality, consider lateral ischemia Abnormal ECG When compared with ECG of 16-DEC-2016 14:40, No significant change was found Confirmed by Karen AYALA, Armando Simpson ([id number]) on 12/17/2016 5:23:37 PM
[2016-12-17 13:56] LABS: HEMATOCRIT 24.6 % (42.0-52.0); HEMOGLOBIN 8.1 g/dL (14.0-18.0)
--- NOTE | 2016-12-17 15:25 | Diag Imaging Result Document ---
PROCEDURE NAME: THORAX/ABDOMEN/PELVIS W/O CONT - 12/17/2016 CT THORAX WITHOUT CONTRAST: No contrast administered per request of the referring provider. A dose-reduction protocol was used. COMPARISON: No comparison exam. FINDINGS: There are mild emphysematous changes. There is some dependent atelectasis bilaterally. There is no consolidation, pleural effusion, or pneumothorax identified. There are calcified left hilar and mediastinal lymph nodes from old granulomatous disease. There are nonspecific small and noncalcified mediastinal lymph nodes. There are atherosclerotic calcifications including coronary artery calcifications noted. There is borderline cardiomegaly. IMPRESSION: 1. Mild emphysematous changes. Bilateral dependent atelectasis. No evidence of pneumonia. 2. Borderline cardiomegaly. Coronary artery calcifications noted. CT ABDOMEN AND PELVIS WITHOUT CONTRAST: No contrast administered per request of the referring provider. A dose-reduction protocol was used. COMPARISON: No comparison exam. FINDINGS: There are multiple calcified granulomas in the spleen from old granulomatous disease. There are no other substantial abnormalities of the liver, spleen, adrenal glands, or pancreas identified. There are no calcified gallstones or pericholecystic inflammation identified. There are some atherosclerotic calcifications of the bilateral kidneys. There is no definite renal stone identified. There is no hydronephrosis seen. There is an abdominal aortic aneurysm repair endograft. There is an apparent stent at the proximal left renal artery. There is no evidence of bowel obstruction. There is no pericecal inflammation identified. There is no substantial bowel wall thickening identified. There is no abscess identified. There is no free air seen. There are streak artifacts from metallic right hip prosthesis which limits detail at the pelvis. The urinary bladder brody appear diffusely thickened with hazy external margins. While this could be exaggerated by limited distention of the urinary bladder, the possibility of urinary bladder cystitis cannot be excluded. There is mild presacral edema or scarring. IMPRESSION: 1. Diffusely thickened urinary bladder brody with hazy external margins, suspicious for cystitis. Mild presacral edema. 2. No bowel obstruction. No abscess. No free air.
--- NOTE | 2016-12-17 15:32 | CONSULTATION ---
DATE OF CONSULTATION: 12/17/2016 CURRENT HISTORY: Patient is a pleasant 81-year-old male who is 1 week status post right bipolar hemiarthroplasty. The patient sustained a syncopal episode while at [facility]. He underwent evaluation and was noted to have anemia and was treated with transfusion. He has seen improvement this morning. PHYSICAL EXAM: Patient's right lower extremity wound looks good. There is no signs, symptoms of infection. Calf is soft. He is active dorsiflexion, plantar flexion. There is some discomfort with gentle movement. No x-rays were obtained today. The patient status post right bipolar hemiarthroplasty. PLAN: At this point will plan on resuming physical therapy once medically cleared. Patient will be weightbearing as tolerated right lower extremity. [facility]
[2016-12-18 06:35] LABS: MANUAL DIFF NEEDED? NO
[2016-12-18] MEDS: HUMULIN R SUBQ SCH ×4 (06:47→21:50)
[2016-12-18] MEDS: PRILOSEC PO SCH ×2 (06:49→21:38)
[2016-12-18] MEDS: NORCO-5 PO PRN ×4 (06:51→21:36)
[2016-12-18 06:54] LABS: BASO% 0.1 % (0.0-0.8); EOS# 0.12 X1000 (0.0-0.7); EOS% 1.1 % (0.0-10.0); HEMATOCRIT 25.7 % (42.0-52.0); HEMOGLOBIN 8.4 g/dL (14.0-18.0); IMM GRAN# 0.08 X1000 (0.0-0.04); IMM GRAN% 0.8 % (0.0-0.5); LYMPH# 1.64 X1000 (1.2-3.4); LYMPH% 15.5 % (20.5-51.1); MCH 29.3 PG (27-31); MCHC 32.7 g/dL (33-37); MCV 89.5 FL (81-99); MONO# 0.96 X1000 (0.11-0.59); MONO% 9.1 % (1.7-9.3); MPV 10.5 FL (7.4-10.4); NEUT% 73.4 % (42.2-75.2); PLT 274 X1000 (130-400); RBC 2.87 XMIL (4.7-6.1)
[2016-12-18 08:50] LABS: AGAP 14; ALBUMIN 2.6 g/dL (3.5-5.0); ALKALINE PHOSPHATASE 82 U/L (32-122); BUN 30 mg/dL (8-22); CALCIUM 8.4 mg/dL (8.8-10.2); CHLORIDE 108 mmol/L (98-107); COSMO 293; GOT 94 U/L (10-34); GPT 66 U/L (10-44); SODIUM 143 mmol/L (136-145); TCO2 21 mmol/L (25-35); TOTAL BILIRUBIN 0.93 mg/dL (0.20-1.00); TOTAL PROTEIN 5.3 g/dL (6.3-8.3)
--- NOTE | 2016-12-18 10:06 | PROGRESS NOTE ---
DATE: 12/18/2016 SUBJECTIVE: The patient is a pleasant 81-year-old male who is 8 days status post right bipolar hemiarthroplasty. The patient is currently sleeping. I spoke with the nurse, and she stated that he still continues with some confusion. LABORATORY DATA: His hemoglobin is 8.4, hematocrit is 25.7. IMPRESSION: Postoperative day #8 status post right bipolar hemiarthroplasty. PLAN: At this point, the patient will resume physical therapy as tolerated, right lower extremity, once he is cleared from a medical standpoint. He is stable from an orthopedic standpoint and I will be available if needed. Would recommend discontinuing his rani on .
--- NOTE | 2016-12-18 10:12 | Diag Imaging Result Document ---
PROCEDURE NAME: HEAD W/O CONTRAST - 12/17/2016 CT HEAD WITHOUT CONTRAST: A dose-reduction protocol was used. COMPARISON: No comparison exam. FINDINGS: There are mild atrophic changes. There are moderate chronic-appearing microvascular ischemic changes. There is no indication of recent infarct, although acute infarcts may not be immediately visible. The falx is of increased density but does not appear thickened, compatible with normal variation. There is no evidence of intracranial hemorrhage, mass effect, or midline shift. There is no skull fracture. There is prosthetic globe noted at the left orbit. IMPRESSION: Chronic microvascular ischemic changes. No evidence of intracranial injury. Preliminary results were provided at 9:21 p.m. on 12/17/2016.
[2016-12-18] MEDS: FLOMAX PO SCH (10:21)
[2016-12-18] MEDS: CARDIZEM CD PO SCH (10:21)
[2016-12-18] MEDS: FERROUS SULFATE PO SCH (10:21)
[2016-12-18] MEDS: ZOSYN 3.375 GM/NS 50 ML IV SCH ×3 (10:22→21:36)
--- NOTE | 2016-12-18 11:35 | PROGRESS NOTE ---
DATE: 12/18/2016 SUBJECTIVE: Mr. Bryn Wood is comfortably resting in bed, easily awoken and he is oriented but according to nurse's notes, it looks like last night around 8 o'clock, he was found in the floor stating that he was trying to get the catfish so he could cook it. Apparently there were no injuries, no visible injuries. Nurse practitioner on warehouse supervisor 3rd shift was notified and a head CT has been ordered. They also notified Ortho. It is unsure what could be causing the confusion except for his underlying mild dementia with a history of a stroke. The head CT has been taken, there is just not a result in the computer at this time. Currently his vitals are stable and he has no complaint. PHYSICAL EXAMINATION: Vital Signs: Temperature is 99.1 degrees, heart rate 79, respiratory rate 16, blood pressure 156/77, O2 saturation 100% on room air. General: Mr. Wood is a 81-year-old, male, who is in no acute distress. He is able to answer questions appropriately. Cardiovascular: Irregularly irregular rate and rhythm. No rubs, gallops or murmurs. Pulmonary: Clear to auscultation. Bilateral breath sounds. No accessory muscle use or work of breathing noted. GI: Soft, nontender, nondistended. Positive bowel sounds x4. Extremities: No edema noted. +2 dorsalis and radial pulses. Neuro: Oriented to name, place and year. Followed commands. Pupils: Left was a 4 and right was a 2. No change from previous assessment. LABORATORY DATA: White blood cells 10,000. Hemoglobin 8.4, hematocrit 25.7, platelet count 274,000. Sodium 143, potassium 4.0, BUN 30, creatinine is 1.1. Glucose 124. Calcium 8.4. Total bilirubin 0.93. AST 94, ALT 66, albumin 2.6. IMAGING: A chest, abdomen and pelvic CT: Chest showed mild emphysematous changes. Bilateral dependent atelectasis but no evidence of pneumonia. Borderline cardiomegaly and coronary artery calcifications. Abdomen and pelvis shows diffusely thickened urinary bladder brody with hazy external margins suspicious for cystitis with mild presacral edema. No bowel obstruction. No abscess. No free air. ASSESSMENT AND PLAN: 1. Syncope with history of CVA currently in atrial fibrillation and is anemic. Patient received 1 unit of packed red blood cells yesterday with improvement in hemoglobin and hematocrit. No new stroke per MRI of the brain, MRA of the brain and neck. Pupils are unequal, but they have remained unequal about 4 on the left and 2 on the right. Both reactive. 2. Troponinenmia with atrial fibrillation. Rate is controlled. Echocardiogram was normal. Cardiology is following. He was on Xarelto 10. That was stopped because of the anemia. There was mention of increasing it to 15 mg. will defer to Cardiology. 3. Encephalopathy, origin unknown. Seems to be only at night. He was found on the floor. It is unknown if he fell or if he just climbed down to the floor. Currently awaiting head CT. 4. Hypertension. Continue home medications. 5. Peripheral vascular disease. 6. BPH. Continue Flomax. 7. Diabetes mellitus type 2 with hyperglycemia, stable. Continue pattern blood glucoses and sliding scale insulin. 8. Hyperlipidemia. Continue home medications. 9. Recent right hip arthroplasty followed by Dr. Bai. Currently Xarelto is on hold due to anemia. 10. Iron-deficiency anemia. Continue supplementation. Did receive 1 packed red blood cells with improvement in hemoglobin, hematocrit. 11. Leukocytosis. This has resolved but he does have a little low grade 99.1 temp. Urinalysis has not been able to be obtained as he is incontinent but the CT of the pelvis shows possible cystitis so we will go ahead and start Zosyn prophylactically for now. 12. Mild transaminitis. This may be mildly elevated secondary to receiving blood yesterday and will continue to follow. 13. Protein calorie malnutrition. Continue current diet regimen and encouraged intake. 14. Deep venous thrombosis prophylaxis. SCD. 15. Gastrointestinal prophylaxis. Proton pump inhibitor. Dictated by SEBASTIAN Fregoso for Sebas Celis MD
[2016-12-18] MEDS: NS 1,000 ML IV SCH (13:13)
[2016-12-18] MEDS: COLACE PO SCH (21:36)
[2016-12-18] MEDS: ZOCOR PO SCH (21:36)
[2016-12-19] MEDS: ZOSYN 3.375 GM/NS 50 ML IV SCH ×3 (04:14→15:22)
[2016-12-19] MEDS: NS 1,000 ML IV SCH ×2 (04:14→17:45)
[2016-12-19 04:39] LABS: URINE MICRO REVIEW NEEDED? NO; URINE SOURCE VOIDED
[2016-12-19 04:43] LABS: BILIRUBIN URINE NEGATIVE (NEGATIVE); BLOOD URINE SMALL (NEGATIVE); COLOR YELLOW; GLUCOSE URINE NEGATIVE (NEGATIVE); LEUKOCYTES URINE LARGE (NEGATIVE); NITRITE URINE NEGATIVE (NEGATIVE); PROTEIN URINE 30 mg/dL (NEGATIVE); TURBIDITY URINE HAZY (CLEAR); UROBILINOGEN URINE 3 mg/dL (NORMAL)
[2016-12-19 04:45] LABS: UR EPITHELIAL CELLS <10 /HPF (<10); URINE BACTERIA NEGATIVE /HPF; URINE RBC <10 /HPF (<10); URINE WBC TNTC /HPF (<10)
[2016-12-19] MEDS: PRILOSEC PO SCH ×2 (06:30→19:15)
[2016-12-19] MEDS: NORCO-5 PO PRN ×2 (06:30→15:24)
[2016-12-19] MEDS: HUMULIN R SUBQ SCH ×4 (06:30→22:41)
[2016-12-19] MEDS: FLOMAX PO SCH (08:49)
[2016-12-19] MEDS: FERROUS SULFATE PO SCH (08:49)
[2016-12-19] MEDS: CARDIZEM CD PO SCH (08:49)
[2016-12-19 10:49] LABS: MANUAL DIFF NEEDED? NO
[2016-12-19 10:53] LABS: BASO% 0.1 % (0.0-0.8); EOS# 0.15 X1000 (0.0-0.7); EOS% 1.6 % (0.0-10.0); HEMATOCRIT 24.1 % (42.0-52.0); HEMOGLOBIN 7.9 g/dL (14.0-18.0); IMM GRAN# 0.08 X1000 (0.0-0.04); IMM GRAN% 0.9 % (0.0-0.5); LYMPH# 1.21 X1000 (1.2-3.4); LYMPH% 13.1 % (20.5-51.1); MCH 29.7 PG (27-31); MCHC 32.8 g/dL (33-37); MCV 90.6 FL (81-99); MONO# 0.67 X1000 (0.11-0.59); MONO% 7.3 % (1.7-9.3); MPV 10.7 FL (7.4-10.4); PLT 266 X1000 (130-400); RBC 2.66 XMIL (4.7-6.1)
[2016-12-19 11:14] LABS: AGAP 12; ALBUMIN 2.1 g/dL (3.5-5.0); ALKALINE PHOSPHATASE 79 U/L (32-122); BUN 23 mg/dL (8-22); CALCIUM 7.8 mg/dL (8.8-10.2); CHLORIDE 108 mmol/L (98-107); COSMO 291; GOT 66 U/L (10-34); GPT 65 U/L (10-44); MAGNESIUM 1.5 mg/dL (1.5-2.7); POTASSIUM 3.8 mmol/L (3.5-5.1); SODIUM 141 mmol/L (136-145); TCO2 21 mmol/L (25-35); TOTAL BILIRUBIN 1.12 mg/dL (0.20-1.00); TOTAL PROTEIN 5.2 g/dL (6.3-8.3)
[2016-12-19] MEDS ORDERED: MAGNESIUM SULFATE 2 GM/S.W.I. 50 ML IV ONE (14:00)
[2016-12-19] MEDS ORDERED: SODIUM PHOSPHATE 20 MMOL in NS 250 ML IV ONE (14:00)
--- NOTE | 2016-12-19 14:47 | Diag Imaging Result Document ---
PROCEDURE NAME: EXTREM LOWER W/O CONTRAST - 12/19/2016 CT LEFT THIGH WITHOUT CONTRAST: FINDINGS: No fracture to the femur. No dislocation. No significant arthritic changes at the hip or knee. There is subcutaneous edema within the fat of the thigh. I do not identify a hematoma. Neither is a mass identified on this noncontrasted exam. No other abnormality. IMPRESSION: There is a small amount of edema in the subcutaneous tissues, but no mass or hematoma identified.
--- NOTE | 2016-12-19 15:23 | PROGRESS NOTE ---
DATE: 12/19/2016 SUBJECTIVE: Mr. Bryn Wood is 81-year-old male. He is in no acute distress. He is currently resting in bed but trying to use the urinal. Seems mildly confused yet oriented. No complaints. OBJECTIVE: Vital signs: Temperature 98.5 degrees, heart rate 86, respiratory rate 18, blood pressure 147/72, O2 saturation 99% on room air Cardiovascular: Irregularly irregular rate and rhythm. No rubs, gallops, murmurs. Pulmonary: Clear to auscultate. Bilateral breath sounds. No accessory muscle use, work of breathing noted. Extremities: No edema noted, +2 dorsalis, radial pulses. Neuro: Oriented x3 but has confused conversation. Follows commands. LABORATORY DATA: White blood cells 9000, hemoglobin 7.9, hematocrit 24, platelet count 266,000. Sodium 141, potassium 3.8, BUN 23, creatinine is 1.2, glucose 211 magnesium 1.5, total bilirubin is 1.12, AST 66, ALT 65, alkaline phosphatase 79, protein 5.2, albumin is 2.1. Urinalysis 30 protein, small blood, negative ketones, large leukocyte, too numerous to count white blood cells, negative for bacteria. IMAGING: None. ASSESSMENT AND PLAN: 1. Syncope with history of cerebrovascular accident with atrial fibrillation and anemia. No more episodes of syncope. Pupils are chronically unequal but reactive. 2. Chronic atrial fibrillation with troponinemia rate controlled. Will resume Xarelto 10. Will let cardiology increase to 15 if they would like. No complaints of chest pain. 3. Encephalopathy. This seems to be improved. 4. Hypertension stable. 5. Peripheral vascular disease. 6. Benign prostatic hypertrophy. Continue Flomax. 7. Diabetes mellitus type 2 stable. Continue pattern blood glucoses and sliding scale insulin. 8. Hyperlipidemia. Continue home medications. 9. Recent right hip arthroplasty followed by Dr. Bai. Xarelto 10 mg daily has been resumed per Dr. Bai. Resume physical therapy as tolerated. Recommendations to discontinue his rani on . 10. Iron-deficiency anemia. Will continue with supplementation. Will give 1 more unit of packed red blood cells. Stool for Hemoccult is negative. 11. Leukocytosis resolved. 12. Cystitis per CT of the pelvis. Continue Zosyn for now. Urinalysis negative for bacteria although it does show large leukocytes and too numerous to count white blood cells, is negative for nitrites also. 13. Transaminitis with hyperbilirubinemia. Continue to trend. 14. Protein calorie malnutrition. Continue current diet regimen. Encourage diet intake. Will add Glucerna with meal. 15. Hypomagnesemia. Will do 2 g of IV magnesium. 16. Hypophosphatemia. Will do the phosphorus 20 millimole. 17. Deep venous thrombosis prophylaxis Xarelto. 18. Gastrointestinal prophylaxis proton pump inhibitor. Dictated by SEBASTIAN Fregoso for Sebas Celis MD
[2016-12-19] MEDS: COLACE PO SCH (22:40)
[2016-12-19] MEDS: ZOCOR PO SCH (22:41)
[2016-12-20] MEDS: ZOSYN 3.375 GM/NS 50 ML IV SCH ×4 (02:18→21:12)
[2016-12-20] MEDS: XARELTO PO SCH (07:03)
[2016-12-20] MEDS: PRILOSEC PO SCH ×2 (07:04→19:21)
[2016-12-20] MEDS: HUMULIN R SUBQ SCH ×3 (07:04→16:55)
[2016-12-20 07:23] LABS: MANUAL DIFF NEEDED? NO
[2016-12-20 07:39] LABS: BASO% 0.2 % (0.0-0.8); EOS# 0.19 X1000 (0.0-0.7); EOS% 2.1 % (0.0-10.0); HEMATOCRIT 25.8 % (42.0-52.0); HEMOGLOBIN 8.5 g/dL (14.0-18.0); IMM GRAN# 0.07 X1000 (0.0-0.04); IMM GRAN% 0.8 % (0.0-0.5); LYMPH# 1.23 X1000 (1.2-3.4); LYMPH% 13.4 % (20.5-51.1); MCH 29.4 PG (27-31); MCHC 32.9 g/dL (33-37); MCV 89.3 FL (81-99); MONO% 9.8 % (1.7-9.3); MPV 10.3 FL (7.4-10.4); NEUT% 73.7 % (42.2-75.2); PLT 271 X1000 (130-400); RBC 2.89 XMIL (4.7-6.1)
[2016-12-20 07:41] LABS: AGAP 13; ALBUMIN 2.2 g/dL (3.5-5.0); ALKALINE PHOSPHATASE 71 U/L (32-122); BUN 18 mg/dL (8-22); CALCIUM 8.2 mg/dL (8.8-10.2); CHLORIDE 111 mmol/L (98-107); COSMO 289; GOT 50 U/L (10-34); GPT 56 U/L (10-44); MAGNESIUM 1.7 mg/dL (1.5-2.7); POTASSIUM 3.3 mmol/L (3.5-5.1); SODIUM 144 mmol/L (136-145); TCO2 20 mmol/L (25-35); TOTAL BILIRUBIN 1.13 mg/dL (0.20-1.00); TOTAL PROTEIN 5.3 g/dL (6.3-8.3)
--- NOTE | 2016-12-20 08:06 | EKG Report ---
Test Performed on : 12/18/2016 06:35:35 AM Test Reason : afib Blood Pressure : / mmHG Vent. Rate : 083 BPM Atrial Rate : 300 BPM P-R Int : 000 ms QRS Dur : 098 ms QT Int : 398 ms P-R-T Axes : 000 062 116 degrees QTc Int : 467 ms Atrial fibrillation. Minimal voltage criteria for LVH, may be normal variant ST & T wave abnormality, consider lateral ischemia Prolonged QT Abnormal ECG When compared with ECG of 17-DEC-2016 11:14, No significant change was found Confirmed by Karen AYALA, Armando Simpson ([id number]) on 12/20/2016 4:25:09 PM
[2016-12-20] MEDS: NS 1,000 ML IV SCH ×3 (09:50→21:13)
[2016-12-20] MEDS: FERROUS SULFATE PO SCH (10:03)
[2016-12-20] MEDS: FLOMAX PO SCH (10:03)
[2016-12-20] MEDS: CARDIZEM CD PO SCH (10:03)
[2016-12-20] MEDS ORDERED: KLOR-CON PO ONE (13:27)
[2016-12-20] MEDS ORDERED: GEODON IM PRN (13:44)
[2016-12-20] MEDS ORDERED: STERILE WATER INJ. INJ PRN (13:44)
--- NOTE | 2016-12-20 13:51 | PROGRESS NOTE ---
DATE: 12/21/2016 SUBJECTIVE: Mr. Wood reports he is doing well today. No family is present at bedside and I am having a little bit of difficulty finding out if his mental status has cleared. He certainly seems pleasant. PHYSICAL EXAMINATION: Vital signs: Afebrile. Heart rate 87. Blood pressure 150/90. General: In no acute distress. Cardiovascular: He is in an irregularly irregular rhythm. This is consistent with atrial fibrillation. No lower extremity edema. Chest: Clear bilaterally. No increased work of breathing. Abdomen: Soft, nontender. Skin Exam: Warm and dry throughout. PERTINENT DATA: White count 9.2, hematocrit 25.8, platelet count 271,000. Sodium 144, potassium 3.3, BUN 18, creatinine 1. ASSESSMENT: 1. New onset atrial fibrillation. 2. Altered mental status. 3. Anemia. PLAN: Anemia has stabilized. His hematocrit is 25.8 and that seems relatively stable since the 3rd. He is back on his Xarelto per dosing post hip fracture repair. He has atrial fibrillation. I would like to see him in the office prior to making a consideration of long-term anticoagulation in this patient. We would like to ensure that his mental status has cleared and that he is stable from mobility standpoint.
--- NOTE | 2016-12-20 17:50 | PROGRESS NOTE ---
DATE: 12/20/2016 SUBJECTIVE: The patient is now a little bit confused and he said that he is not talking with the doctor who told him to come to the hospital, but reassured him he is already in the hospital. As we mentioned before, he seems confused. According to nursing staff, he is having this on and off. OBJECTIVE: Vital Signs: Temperature 98.4 degrees, heart rate 87, respiratory rate 23, blood pressure 150/90, O2 saturation 94% on room air. General Examination: This is a chronically ill- looking, frail, 81-year-old male lying in bed, in no acute distress. HEENT: Head is normocephalic, atraumatic. Anicteric sclerae and pale conjunctivae. Mucous membrane dry. Neck: Supple. No JVD noted. No carotid bruits. No lymphadenopathy. No thyromegaly. Cardiovascular: Irregularly irregular heart rate and rhythm. Pulmonary: Clear bilaterally to auscultation. No work of breathing or using accessory muscles. Abdomen: Soft, nontender to palpation. Bowel sounds present. No organomegaly. Extremities: No edema noted. Peripheral pulses present in both legs. Neurological: Patient is awake, but sometimes he is confused on following commands and move 4 extremities. LABORATORY DATA: White cell count 9.20, hemoglobin 8.5, hematocrit 25.9, platelets 271,000. BMP shows potassium 3.3 and glucose 99. ASSESSMENT: 1. Syncope. No more episodes of syncope since admission. 2. Chronic atrial fibrillation. By now, he is back to [facility] for prevention of deep venous thrombosis. Patient has been evaluated by Dr. Contreras from Cardiology who preferred to see him in the office before proceeding with long-term anticoagulation for this condition. 3. Hypertension. Blood pressure is under control. 4. Encephalopathy. Patient has some episodes of confusion on and off. I think this could be because of delirium because this elderly patient is out from his usual environment. At this point, we will use Geodon 10 mg intramuscular q.4 hours p.r.n. to agitation. 5. Diabetes mellitus type 2. We will continue with sliding scale insulin. 6. Recent hip arthropathy. This is being followed by Dr. Bai. He definitely needs to go back to rehab facility to resume physical therapy. 7. Iron-deficiency anemia. We will continue with supplementation. 8. Protein calorie malnutrition. We will continue to include Glucerna. PLAN: 1. Overall this patient is doing good. The patient is confused at times, but he was admitted basically for altered mental status and troponins were high, but Cardiology thinks that we do not need to pursue any more aggressive testing. Patient is doing fine. He needs to go back to rehab facility because of his recent hip arthropathy. We will see how this patient does. 2. Overall, this patient is doing good and needs to go to rehab facility as soon as we get a bed for him.
[2016-12-20] MEDS: ZOCOR PO SCH (21:12)
[2016-12-20] MEDS: COLACE PO SCH (21:13)
[2016-12-21] MEDS: HUMULIN R SUBQ SCH ×3 (00:36→11:17)
[2016-12-21] MEDS: ZOSYN 3.375 GM/NS 50 ML IV SCH ×2 (04:17→09:48)
[2016-12-21] MEDS: XARELTO PO SCH (05:40)
[2016-12-21] MEDS: PRILOSEC PO SCH ×2 (05:40→07:28)
[2016-12-21 06:33] LABS: MANUAL DIFF NEEDED? NO
[2016-12-21 06:39] LABS: BASO% 0.2 % (0.0-0.8); EOS# 0.15 X1000 (0.0-0.7); EOS% 1.9 % (0.0-10.0); HEMATOCRIT 28.5 % (42.0-52.0); HEMOGLOBIN 9.3 g/dL (14.0-18.0); IMM GRAN# 0.06 X1000 (0.0-0.04); IMM GRAN% 0.7 % (0.0-0.5); LYMPH# 1.23 X1000 (1.2-3.4); LYMPH% 15.2 % (20.5-51.1); MCH 29.2 PG (27-31); MCHC 32.6 g/dL (33-37); MCV 89.6 FL (81-99); MONO# 0.83 X1000 (0.11-0.59); MONO% 10.3 % (1.7-9.3); MPV 10.2 FL (7.4-10.4); NEUT% 71.7 % (42.2-75.2); PLT 330 X1000 (130-400); RBC 3.18 XMIL (4.7-6.1)
[2016-12-21 06:52] LABS: AGAP 11; ALBUMIN 2.4 g/dL (3.5-5.0); ALKALINE PHOSPHATASE 74 U/L (32-122); BUN 13 mg/dL (8-22); CALCIUM 8.8 mg/dL (8.8-10.2); CHLORIDE 112 mmol/L (98-107); COSMO 292; GOT 34 U/L (10-34); GPT 47 U/L (10-44); MAGNESIUM 1.7 mg/dL (1.5-2.7); POTASSIUM 3.6 mmol/L (3.5-5.1); SODIUM 146 mmol/L (136-145); TCO2 23 mmol/L (25-35); TOTAL BILIRUBIN 1.17 mg/dL (0.20-1.00); TOTAL PROTEIN 5.5 g/dL (6.3-8.3)
[2016-12-21] MEDS: FERROUS SULFATE PO SCH (09:48)
[2016-12-21] MEDS: CARDIZEM CD PO SCH (09:48)
[2016-12-21] MEDS: FLOMAX PO SCH (09:48)
--- NOTE | 2016-12-21 13:33 | PROGRESS NOTE ---
DATE: 12/21/2016 SUBJECTIVE: Patient is feeling fine. He is still having confusion on and off. OBJECTIVE: Vital Signs: Temperature 97.9 degrees, heart rate 85, respiratory rate 18, blood pressure 179/80, O2 saturation 97% on room air. General Examination: This is a chronically ill- looking, frail, 81-year-old male, lying in bed, in no acute distress. HEENT: Head is normocephalic, atraumatic. Anicteric sclerae and pale conjunctivae. Mucous membranes dry. Neck: Supple. No JVD noted. No carotid bruits. No lymphadenopathy. No thyromegaly. Cardiovascular Exam: Regular heart rhythm. No murmurs, gallops, or rubs. Pulmonary: Clear bilaterally to auscultation. No work of breathing or using accessory muscles. Abdomen: Soft, nontender to palpation. Bowel sounds present. No organomegaly. Extremities: No edema noted. Peripheral pulses present in both legs. Neurological: Patient moves 4 extremities. He is confused and not oriented. LABORATORY DATA: Reviewed. ASSESSMENT AND PLAN: 1. Syncope. The condition is resolved. No more episodes of syncope since admission. During atrial fibrillation. By now, the patient has been restarted on Xarelto for DVT prophylaxis but he was evaluated yesterday by Dr. Armando Contreras from Cardiology. He recommends to see him in the office before proceeding with long-term anticoagulation for atrial fibrillation. 2. Hypertension. Blood pressure is high today. Will add amlodipine to his current treatment. 3. Encephalopathy/delirium. Patient has been having these episodes of confusion on and off during the previous day. I think it is delirium because of the long stay here in the hospital. We will use Geodon just in case this patient becomes agitated. 4. Diabetes mellitus type 2. Patient is on sliding scale insulin. We will continue with the same management. 5. Recent hip arthroplasty. Dr. Bai has evaluated this patient and he is okay to go to rehab facility to receive PT. 6. Iron deficiency anemia. We will continue with iron supplementation. 7. Protein-calorie malnutrition. We will continue Glucerna. 8. Patient is waiting for a rehab facility bed. We will transfer him as soon as we get 1 bed for him.
[2016-12-21 14:55] VITALS: BP 169/80
--- NOTE | 2016-12-21 16:26 | DISCHARGE SUMMARY ---
ADMISSION DATE: 12/16/2016 DISCHARGE DATE: 12/21/2016 CONSULTATIONS: 1. Dr. Armando Contreras with cardiology. 2. Dr. Bai with orthopedics. PERTINENT PROCEDURES: 1. Brain MRI showed no evidence of acute disease. 2. 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 3. Neck MRA showed no gross abnormality. 4. CT of the chest, abdomen and pelvis showed mild emphysema changes, borderline cardiomegaly. No evidence of pneumonia. Diffusely thickened urinary bladder wall with hazy external margin suspicious for cystitis. Mild presacral edema. No bowel obstruction. No free air. 5. Head CT shows chronic microvascular ischemic changes. No intracranial injury. 6. Lower extremity CT showed there was a small amount of edema in the subcutaneous tissues, but no mass or hematoma identified on the left lower extremity. DISCHARGE DIAGNOSES: 1. Syncope. Condition has resolved. The patient restarted on his Xarelto for his deep vein thrombosis prophylaxis. 2. Hypertension. Controlled on amlodipine and into his regimen. 3. Encephalopathy delirium. Patient has been having episodes of confusion on and off, which is secondary to some underlying dementia as well as a long stay in the hospital. 4. Diabetes mellitus type 2. Continue with home regimen. 5. Recent hemiarthroplasty Dr. Bai evaluated the patient. He was okay to go back to the rehabilitation facility per his standpoint. 6. Iron deficiency anemia. Continue with iron supplementation. 7. Protein calorie malnutrition. Continue with Glucerna. 8. New onset atrial fibrillation. Dr. Contreras would like to see the patient back in his office for the consideration of long-term anticoagulation. HOSPITAL COURSE: Briefly, Mr. Bryn Wood is a 81-year-old, male, with past medical history of hypertension, diabetes, prior CVA, who recently had a right displaced femoral neck fracture status post hemiarthroplasty on the right hip. Procedure was done on 12/08/2016. He had been residing at [facility] for rehabilitation, as well as occupational therapy. He said that he passed out. It was unknown if he hit the floor or his head. In the ED he was found to have an elevated glucose, elevated troponins, along with low hemoglobin and hematocrit. EKG did not show any signs of ST elevation, but it was noted that his left pupil was around 4, reactive to light, and his right pupil was around 2 and reactive. Trace weaker on the right secondary to his previous stroke. The patient did undergo MRI of the brain, as well as head CT that did not show anything acute. Dr. Armando Contreras reviewed the patient. The patient was with asymptomatic troponinemia with an episode of altered mental status. The patient did have leukocytosis. CT of the chest, abdomen and pelvis just suggested maybe some cystitis. He was prophylactically placed on IV antibiotics. The patient did have an episode of atrial fibrillation. It was noted the patient will continue on his DVT prophylaxis of Xarelto, follow up with Dr. Contreras in the office for consideration of long-term anticoagulation use. There was concern about the patient's mental status. At times, he is doing relatively well. There are times he has bouts of confusion on and off. The patient has not had any more syncope while inhouse. Dr. Lin feels like the patient has some underlying undiagnosed dementia, as well as secondary to a long stay in the hospital. He feels that he is appropriate for discharge back to rehab today. VITAL SIGNS AT TIME OF DISCHARGE: Temperature is 98.1 degrees, heart rate 84, respirations 19, blood pressure 169/80 and O2 is 97% on room air. DISCHARGE DIET: Healthy heart with Glucerna shakes with meals. DISCHARGE MEDICATIONS: 1. Xarelto 10 mg p.o. daily. 2. Tylenol 1000 mg p.o. q. 8 hours p.r.n. 3. Ferrous sulfate 325 mg p.o. with breakfast. 4. Colace 200 mg p.o. at bedtime. 5. Milk of Magnesia 30 mL p.o. daily. 6. Zocor 1 dose as directed 40 mg. 7. Prilosec 1 dose as directed 20 mg. 8. Glucophage XR 500 mg p.o. b.i.d. 9. Flomax 0.4 mg capsule p.o. daily. 10. Cardizem 300 mg capsule p.o. as directed. 11. Cost 5/325 q. 4 hours p.r.n. pain. FOLLOWUP: The patient is being discharged back to [facility]. He will follow up with Dr. Armando Contreras within the month, as well as his primary care physician. Patient can return to the ED for any worsening of symptoms. TIME SPENT IN DISCHARGE: Greater than 30 minutes. Dictated by SEBASTIAN Matthew for Sebas Celis MD
--- NOTE | 2016-12-31 17:05 | DISCHARGE SUMMARY ---
ADMISSION DATE: 12/17/2016 DISCHARGE DATE: 12/21/2016 DISCHARGE SUMMARY ADDENDUM: ANSWER: Acute blood loss anemia.
== END 2016-12-21 18:00 | DRG 309 ==
LOC: EDBD → EDUNIT# → ED 10:00 → 3N 15:04 → OBSVTOIN 12-17 14:42
PROVIDERS: ATTEND Internal Medicine
PROC: 30233N1 Transfusion of Nonautologous Red Blood Cells into Peripheral Vein, Percutaneous Approach (ICD-10-PCS; principal; 2016-12-17)
DX: I48.91 Unspecified atrial fibrillation (principal); E46 Unspecified protein-calorie malnutrition; D62 Acute posthemorrhagic anemia; E11.65 Type 2 diabetes mellitus with hyperglycemia; F03.90 Unspecified dementia, unspecified severity, without behavioral disturbance, psychotic disturbance, mood disturbance, and anxiety; F05 Delirium due to known physiological condition; E11.51 Type 2 diabetes mellitus with diabetic peripheral angiopathy without gangrene; I69.351 Hemiplegia and hemiparesis following cerebral infarction affecting right dominant side; I10 Essential (primary) hypertension; E83.42 Hypomagnesemia; N30.90 Cystitis, unspecified without hematuria; E78.5 Hyperlipidemia, unspecified; N40.0 Benign prostatic hyperplasia without lower urinary tract symptoms; Z96.641 Presence of right artificial hip joint; Z95.820 Peripheral vascular angioplasty status with implants and grafts; Z68.29 Body mass index [BMI] 29.0-29.9, adult; E83.39 Other disorders of phosphorus metabolism; Z79.899 Other long term (current) drug therapy; Z79.84 Long term (current) use of oral hypoglycemic drugs; Z79.01 Long term (current) use of anticoagulants
CPT/HCPCS: 70450; 70544; 70547; 70551; 71010; 71250; 73700; 74176; 80053; 81001; 82270; 82550; 82607; 82728; 82746; 82948; 83540; 83550; 83735; 84100; 84443; 84484; 85014; 85018; 85025; 85610; 85730; 86850; 86900; 86901; 86920; 87040; 93005; 93010; 93306; 94761; 94799; 99285; J2543; J3475; J3486; J7030; J7040; J7050; P9016; 97110-GP; 97530-GP